=== PATIENT | male | born 1975 | race Caucasian/White ===

== ENCOUNTER 2017-01-01 08:44 | Emergency (ER) | payer BC ==
[~2017-01-01] VITALS: Ht 177.8 cm; Wt 99.7 kg
[2017-01-01 08:53] VITALS: TEMP 36.8; Ht 177.8 cm; Wt 99.7 kg
[2017-01-01 09:43] LABS: HEMATOCRIT 42.9 % (42-52); MEAN CELL VOLUME 86.3 fL (80-100); MEAN CORPUSCULAR HEMOGLOBIN 29.6 pg (25-34); MEAN CORPUSCULAR HGB CONC 34.3 g/dl (32-36); MEAN PLATELET VOLUME 9.9 fL (7.4-10.4); PLATELET COUNT 264 K/uL (130-400); RED BLOOD COUNT 4.97 M/uL (4.7-6.1)
[2017-01-01] MEDS ORDERED: KETOROLAC TROMETHAMINE 30 MG/ML VIAL IV STA (09:43)
[2017-01-01] MEDS ORDERED: SODIUM CHLORIDE 0.9% 1000ML 1,000 ML IV ONE (09:43)
[2017-01-01] MEDS ORDERED: SODIUM CHLORIDE 0.9% 1000ML 1,000 ML IV STA (09:43)
--- NOTE | 2017-01-01 09:45 | EMERGENCY ROOM VISIT NOTE ---
History Report prepared by Nila: Tone Reeves Under the Supervision of: Dr. Danielito Kim M.D. First contact with patient: 09:30 Chief Complaint: COUGH Stated Complaint: COUGHING UP BLOOD,LOW BACK PAIN,REFERRED Nursing Triage Summary: Pt c/o body aches, fever, headache Monday and Monday. [place] better until the evening started having left back, shoulder, chest pressure, when he stood he felt better. Laid down again and symptoms reappeared. Knows someone with pericarditis with similar symptoms. [place] better. Cough started coughing, threw up from coughing, no blood. Yesterday cough continued, sharp shooting pain in left ribs and left low back that night . Last night he started coughing up blood. Was sent in for CXR History of Present Illness The patient is a 41 year old male who presents to the Emergency Room with complaints of a worsening cough starting two days ago, and he states that he is coughing up blood. The patient states that six days ago he was having body aches , chills, and fevers, and then two days later it felt better. He states that three days ago he was feeling okay, and then he went to lay down, and he was having chest pressure and left shoulder pain that went away when he sat up. He states that he laid back down, and the pain came back, so he sat up, and it felt better. He additionally states that he had some vomiting, sinus pressure, and a headache. He is additionally complaining of sharp left rib and back pain that is exacerbated with deep inspiration and coughing. The patient denies any leg swelling or pain, urinary symptoms, recent long travels, or smoking. The patient states that he has been around someone with pneumonia recently, and he drinks alcohol a few times per month. He states that he has a family history of DVTs and PEs in his mother. Source of History: patient Onset: two days ago Position: other (global) Quality: other (cough) Timing: worsening Associated Symptoms: + back pain, + chills, + fevers, + headache, + vomiting , No urinary symptoms Note: Associated symptoms: Chest pressure and left shoulder pain Review of Systems See HPI for pertinent positives & negatives. A total of 10 systems reviewed and were otherwise negative. Past Medical & Surgical Medical Problems: (1) Biceps rupture, distal Surgical Problems: (1) [place] teeth extracted Old medical records were reviewed. Nurse's notes were reviewed and I agree with. No history of PE or cardiac disease Family History DVT FHx: pulmonary embolism Social History Smoking Status: Never Smoker Alcohol Use: occasionally Marital Status: Housing Status: lives with family Occupation Status: employed Current/Historical Medications Scheduled Levofloxacin (Levaquin), 750 MG PO DAILY Scheduled PRN Oxycodone Immediate Rel Tab (Roxicodone Ir), 1-2 TAB PO Q4H PRN for Severe Pain Allergies Coded Allergies: No Known Allergies (Unverified , 02/16/16) Physical Exam Vital Signs Date Time Temp Pulse Resp B/P Pulse Ox O2 Delivery O2 Flow Rate FiO2 01/01/17 12:53 82 18 147/93 98 Room Air 01/01/17 10:50 90 18 152/85 98 Room Air 01/01/17 08:58 98 Room Air 01/01/17 08:53 36.8 98 17 135/78 98 Room Air Physical Exam General: Non-ill appearing middle aged male HEENT: Normal cephalic atraumatic. Pupils are equal round and reactive to light. Extraocular movements are intact. Oropharynx is pink with moist mucous membranes. No swelling of the mouth lips or tongue. Neck: Supple with a midline trachea. No meningeal signs or stiffness, no JVD or bruits. No Stridor. Chest: Occasional cough which is the cause of pain in the left posterior chest. Clear to auscultation bilaterally. No wheezes or rhonchi. No increased work of breathing. Heart: regular rate and rhythm. Abdomen: Soft nontender, nondistended without rebound guarding or rigidity. Extremities: No cyanosis clubbing or edema. No calf tenderness or assymetry Spine/Back. Non tender to palpation. No CVA tenderness Skin: Good turgor without rashes. Neurologic exam: Cranial nerves two through 12 are intact. Motor and sensation are intact and symmetrical throughout. Medical Decision & Procedures ER Provider Diagnostic Interpretation: Radiology results as stated below per my review and radiologist interpretation: CHEST ONE VIEW PORTABLE HISTORY: Atypical chest pain. COMPARISON: None. FINDINGS: There are low lung volumes. The heart is borderline enlarged. This may be accentuated by the low lung volumes. No pleural effusions. No pneumothorax. No focal lung consolidations. No evidence for pulmonary edema. IMPRESSION: Mild enlargement of cardiac silhouette which could be due to the low lung volumes. Electronically signed by: Jarrell Garcia M.D. 01/01/2017 10:04 AM Dictated Date/Time: 01/01/2017 10:03 AM CHEST CTA for PULMONARY ARTERIES CT DOSE: 901.13 mGy.cm HISTORY: Left-sided chest pain. TECHNIQUE: Multiaxial CT images of the chest were performed following the intravenous administration of contrast to evaluate the pulmonary arteries. Maximal intensity projection images were also obtained. COMPARISON STUDY: None. FINDINGS: No evidence for an aortic dissection. Suboptimal opacification of the pulmonary arteries due to the timing of contrast. There is also mild respiratory motion artifact. The main pulmonary arteries are near nondiagnostic due to the suboptimal opacification. However, there are no definite filling defects within the pulmonary arteries to suggest pulmonary embolus. Questionable filling defects seen within the left lower lobe segmental pulmonary artery on image 121 appears be due to motion artifact. Trace left pleural effusion. No fractures within the visualized osseous structures. Focal consolidation seen within the base of the left lower lobe. An 8 mm nodule within the left major fissure. The central airways are patent. No pneumothorax. The right lung is clear. Hepatic steatosis. The spleen and visualized adrenal glands are unremarkable. No mediastinal lymphadenopathy. Mildly enlarged left hilar lymph nodes measuring up to 12 mm. IMPRESSION: 1. Suboptimal evaluation of the pulmonary arteries as described above. However, no definite pulmonary embolus identified. 2. Focal consolidation seen within the base of the left lower lobe. This favors a pneumonia. 3. An 8 mm nodule within the left major fissure. 4. Mildly enlarged left hilar lymph nodes which are likely reactive. 5. Follow-up chest CT in 2-3 months is recommended to ensure resolution of the above findings. Electronically signed by: Jarrell Garcia M.D. 01/01/2017 10:58 AM Dictated Date/Time: 01/01/2017 10:46 AM Laboratory Results 01/01/17 09:23 01/01/17 09:23 Test 01/01/17 09:23 01/01/17 09:48 01/01/17 11:00 01/01/17 11:01 Red Blood Count 4.97 M/uL (4.7-6.1) Mean Corpuscular Volume 86.3 fL (80-100) Mean Corpuscular Hemoglobin 29.6 pg (25-34) Mean Corpuscular Hemoglobin Concent 34.3 g/dl (32-36) RDW Standard Deviation 41.1 fL (36.4-46.3) RDW Coefficient of Variation 12.9 % (11.5-14.5) Mean Platelet Volume 9.9 fL (7.4-10.4) Prothrombin Time 10.5 SECONDS (9.0-12.0) Prothromb Time International Ratio 1.0 (0.9-1.1) Activated Partial Thromboplast Time 29.9 SECONDS (21.0-31.0) Partial Thromboplastin Ratio 1.2 Anion Gap 7.0 mmol/L (3-11) Est Creatinine Clear Calc Drug Dose 93.9 ml/min Estimated GFR () 85.3 Estimated GFR (Non- 73.6 BUN/Creatinine Ratio 11.9 (10-20) Calcium Level 8.9 mg/dl (8.5-10.1) Total Bilirubin 1.0 mg/dl (0.2-1) Aspartate Amino Transf (AST/SGOT) 34 U/L (15-37) Alanine Aminotransferase (ALT/SGPT) 68 U/L (12-78) Alkaline Phosphatase 75 U/L (45-117) Total Creatine Kinase 283 U/L (39-308) Creatine Kinase MB 1.4 ng/ml (0.5-3.6) Creatine Kinase MB Ratio 0.5 (0-3.0) Troponin I < 0.015 ng/ml (0-0.045) Total Protein 7.3 gm/dl (6.4-8.2) Albumin 3.4 gm/dl (3.4-5.0) Globulin 3.9 gm/dl (2.5-4.0) Albumin/Globulin Ratio 0.9 (0.9-2) Bedside D-Dimer > 450 ng/mlFEU (0-450) Bedside Troponin I 0.000 ng/ml (0-0.045) MW-Jby-S-Type Natriuretic Peptide 39 pg/ml (0-450) Urine Color DK YELLOW Urine Appearance CLOUDY (CLEAR) Urine pH 5.0 (4.5-7.5) Urine Specific [place] > 1.045 (1.000-1.030) Urine Protein NEG (NEG) Urine Glucose (UA) NEG (NEG) Urine Ketones TRACE (NEG) Urine Occult Blood NEG (NEG) Urine Nitrite NEG (NEG) Urine Bilirubin NEG (NEG) Urine Urobilinogen NEG (NEG) Urine Leukocyte Esterase NEG (NEG) Urine WBC (Auto) 1-5 /hpf (0-5) Urine RBC (Auto) 0-4 /hpf (0-4) Urine Hyaline Casts (Auto) 1-5 /lpf (0-5) Urine Epithelial Cells (Auto) 10-20 /lpf (0-5) Urine Bacteria (Auto) NEG (NEG) Test 01/01/17 12:51 Laboratory studies as stated above per my review. Medications Administered Medications (Trade) Dose Ordered Sig/[place] Route Start Time Stop Time Status Last Admin Dose Admin Sodium Chloride 1,000 ml @ 999 mls/hr Q1H1M STAT IV 01/01/17 09:43 01/01/17 10:43 DC 01/01/17 09:51 999 MLS/HR Sodium Chloride (Nss 1000ml) 1,000 ml @ 150 mls/hr Q6H40M ONCE IV 01/01/17 09:43 01/01/17 13:10 DC 01/01/17 09:43 150 MLS/HR Ketorolac Tromethamine (Toradol Inj) 30 mg NOW STAT IV 01/01/17 09:43 01/01/17 09:44 DC 01/01/17 09:51 30 MG Ceftriaxone Sodium (Rocephin Inj) 1 gm NOW STAT IV 01/01/17 11:28 01/01/17 11:29 DC 01/01/17 11:50 1 GM Azithromycin (Zithromax Tab) 500 mg NOW ONCE PO 01/01/17 11:30 01/01/17 11:31 DC 01/01/17 11:50 500 MG ECG Indication: other (cough) Rate (beats per minute): 87 Rhythm: normal sinus Findings: no acute ischemic change, no ectopy, other (No ST segment changes) Comparison ECG Date: 03/04/14 Change: no significant change ED Course 0930: Past medical records reviewed. The patient was evaluated in room B12, and a complete history and physical examination were performed. 0943: Toradol Inj 30mg IV, Sodium Chloride 1000 ml @ 150 mls/hr IV, Sodium Chloride 1000 ml @ 999 mls/hr IV 1014: I reevaluated the patient, and he appears comfortable. I discussed the pros and cons of CT scan, and he agrees. 1100: I reevaluated the patient, and he was doing well 1122: I discussed the patient's case with Dr. Garcia, Radiology, and he does not feel that it is consistent with a PE. 1123: I reassessed the patient, and he was doing well. 1128: Rocephin Inj 1 gm IV 1130: Zithromax Tab 500mg PO 1149: I discussed the patient's case with Dr. Killian, Pulmonology, and he recommends I test for Bordetella and legionella, and to put on the patient on Levaquin. 1207: Upon reevaluation, the patient is feeling well. I discussed the results and treatment plan with him. He verbalized agreement of the treatment plan. The patient was discharged home. Medical Decision Differentials include, but are not limited to; pneumonia, pneumothorax, pericarditis, cardiac disease, infection. This patient comes in as described above. He was placed in room B12. He Is here for treatment and evaluation of cough. He's had a little bit of hemoptysis and he also has left sided chest pain mostly posterior with breathing or moving. He is afebrile here. His vital signs are stable. IV access established and he was hydrated with IV normal saline. He was given Toradol 30 mg IV. Chest x-ray was obtained which did not show any definite infiltrate or pneumothorax. EKG does not show any evidence of acute coronary syndrome or pericarditis. His white count is not elevated. He is not anemic. He has normal renal function. His cardiac biomarkers are not elevated. His d- dimer was elevated and in light of this, I did do a chest CT to evaluate for the possibility of PE or other pathology. I explained the risks and benefits the patient and he freely consented. The CAT scan shows what appears to be pneumonia in the left lower lobe. There is no evidence to suggest a PE at this point. I did discuss the case with Dr. Garcia, the radiologist, who felt this was pneumonia and not PE. I did this further discuss case Dr. Killian, the network cable installer on-call. Given the patient's hotel exposure, he recommended we cover him for Legionella. He also recommended Legionella antigen from the urine as well as Bordetella pertussis antigens from the blood in these were ordered. The patient had received 1 g Rocephin IV here as well as azithromycin [address] Killian recommend we switch him to Levaquin 750 mg and he was given prescription for this. I encouraged close follow-up tomorrow with his primary care doctor he strongly desires to go home. He can use ibuprofen pain for breakthrough pain use OxyIR 5 mg, one or 2 pills every 4-6 hours as needed. He was warned that this can make him drowsy and do not take before drinking, driving, working. He was encouraged to return if: increasing pain, worsening of symptoms, shortness of breath, any new problems or concerns. Consults Time Called: 1119 Consulting Physician: Dr. Garcia, Radiology Returned Call: 1122 I discussed the patient's case with Dr. Garcia, Radiology, and he does not feel that it is consistent with a PE Additional Consults: Time Called: 1133 Consulted Physician: Dr. Killian, Pulmonology Returned Call: 1145 Additional Comments: I discussed the patient's case with Dr. Killian, Pulmonology, and he recommends I test for Bordetella and legionella, and to put on the patient on Levaquin Impression Primary Impression: Pneumonia Additional Impression: Left sided chest pain Scribe Attestation The scribe's documentation has been prepared under my direction and personally reviewed by me in its entirety. I confirm that the note above accurately reflects all work, treatment, procedures, and medical decision making performed by me. Departure Information Dispostion Home / Self-Care Prescriptions Oxycodone Immediate Rel Tab (ROXICODONE IR) 5 Mg Tab 1-2 TAB PO Q4H Y for Severe Pain, #24 TAB Prov: Danielito Kim M.D. 01/01/17 Levofloxacin (Levaquin) 750 Mg Tab 750 MG PO DAILY, #14 TAB Prov: Danielito Kim M.D. 01/01/17 Referrals Vicki Perez M.D. (PCP) Forms HOME CARE DOCUMENTATION FORM, IMPORTANT VISIT INFORMATION Patient Instructions My [facility] Additional Instructions Rest. Drink plenty of fluids. Use Levaquin 750 mg once a day for 14 days May use ibuprofen 400 mg every 6 hours as needed for pain For more severe pain use OxyIR 5 mg, one or 2 pills every 4-6 hours as needed OxyIR may make you drowsy -do not take before drinking, driving, working Follow-up with your doctor tomorrow for recheck. They can try to get you seen by a pulmonary as well this week. Return if: Increasing pain, worsening of symptoms, fever or chills, shortness of breath, any new problems or concerns Problem Qualifiers
[2017-01-01 09:51] LABS: PARTIAL THROMBOPLASTIN RATIO 1.2; PROTHROMBIN TIME (PATIENT) 10.5 SECONDS (9.0-12.0)
[2017-01-01 09:58] LABS: CALCIUM 8.9 mg/dl (8.5-10.1)
[2017-01-01 09:59] LABS: ALT/SGPT 68 U/L (12-78); BLOOD UREA NITROGEN 14 mg/dl (7-18); BUN/CREATININE RATIO 11.9 (10-20); CARBON DIOXIDE 27 mmol/L (21-32); CHLORIDE 105 mmol/L (98-107); GLUCOSE 115 mg/dl (70-99); POTASSIUM 3.7 mmol/L (3.5-5.1); SODIUM 139 mmol/L (136-145)
[2017-01-01 10:04] LABS: ALB/GLOB RATIO 0.9 (0.9-2); ALKALINE PHOSPHATASE 75 U/L (45-117); AST/SGOT 34 U/L (15-37); CKMB/CK RATIO 0.5 (0-3.0)
--- NOTE | 2017-01-01 10:05 | DIAGNOSTIC IMAGING REPORT ---
CHEST ONE VIEW PORTABLE HISTORY: Atypical chest pain. COMPARISON: None. FINDINGS: There are low lung volumes. The heart is borderline enlarged. This may be accentuated by the low lung volumes. No pleural effusions. No pneumothorax. No focal lung consolidations. No evidence for pulmonary edema. IMPRESSION: Mild enlargement of cardiac silhouette which could be due to the low lung volumes. Electronically signed by: Jarrell Garcia M.D. 01/01/2017 10:04 AM Dictated Date/Time: 01/01/2017 10:03 AM
[2017-01-01 10:12] LABS: POINT OF CARE PRO-BNP 39 pg/ml (0-450)
[2017-01-01] MEDS ORDERED: OPTIRAY 320 IV PRN (10:30)
--- NOTE | 2017-01-01 10:59 | DIAGNOSTIC IMAGING REPORT ---
CHEST CTA for PULMONARY ARTERIES CT DOSE: 901.13 mGy.cm HISTORY: Left-sided chest pain. TECHNIQUE: Multiaxial CT images of the chest were performed following the intravenous administration of contrast to evaluate the pulmonary arteries. Maximal intensity projection images were also obtained. COMPARISON STUDY: None. FINDINGS: No evidence for an aortic dissection. Suboptimal opacification of the pulmonary arteries due to the timing of contrast. There is also mild respiratory motion artifact. The main pulmonary arteries are near nondiagnostic due to the suboptimal opacification. However, there are no definite filling defects within the pulmonary arteries to suggest pulmonary embolus. Questionable filling defects seen within the left lower lobe segmental pulmonary artery on image 121 appears be due to motion artifact. Trace left pleural effusion. No fractures within the visualized osseous structures. Focal consolidation seen within the base of the left lower lobe. An 8 mm nodule within the left major fissure. The central airways are patent. No pneumothorax. The right lung is clear. Hepatic steatosis. The spleen and visualized adrenal glands are unremarkable. No mediastinal lymphadenopathy. Mildly enlarged left hilar lymph nodes measuring up to 12 mm. IMPRESSION: 1. Suboptimal evaluation of the pulmonary arteries as described above. However, no definite pulmonary embolus identified. 2. Focal consolidation seen within the base of the left lower lobe. This favors a pneumonia. 3. An 8 mm nodule within the left major fissure. 4. Mildly enlarged left hilar lymph nodes which are likely reactive. 5. Follow-up chest CT in 2-3 months is recommended to ensure resolution of the above findings. Electronically signed by: Jarrell Garcia M.D. 01/01/2017 10:58 AM Dictated Date/Time: 01/01/2017 10:46 AM
[2017-01-01 11:12] LABS: URINE APPEARANCE CLOUDY (CLEAR); URINE BILIRUBIN NEG (NEG); URINE COLOR DK YELLOW; URINE NITRITE NEG (NEG); URINE SPECIFIC GRAVITY > 1.045 (1.000-1.030); UROBILINOGEN NEG (NEG); ZZUR CULT IF INDIC CLEAN CATCH NO
[2017-01-01 11:15] LABS: MANUAL MICROSCOPIC REQUIRED? NO; REVIEW REQ? NO
[2017-01-01] MEDS ORDERED: CEFTRIAXONE SOD INJ 1 GM ADDVIAL IV STA (11:28)
[2017-01-01] MEDS ORDERED: AZITHROMYCIN 250 MG TAB PO ONE (11:30)
[2017-01-01] MEDS ORDERED: LEVO1TAB35 PO (12:03)
[2017-01-01] MEDS ORDERED: OXYC1TAB3 PO (12:03)
[2017-01-01 12:53] VITALS: BP 147/93; PULSE 82; O2SAT 98
[2017-01-03 10:06] LABS: LEGIONELLA ANTIGEN NOT DETECTED (NOT DETECTED)
[2017-01-06 22:10] LABS: BORDETELLA PERTUSSIS PT IGA <1 IU/mL
== END 2017-01-01 12:54 | disposition home or self-care (01) ==
LOC: C.EDB 08:45
DX: J18.9 Pneumonia, unspecified organism (principal); R07.9 Chest pain, unspecified; Z79.899 Other long term (current) drug therapy

== ENCOUNTER 2022-02-26 10:13 | Inpatient (IN) ==
--- NOTE | 2022-02-26 10:56 | Emergency Department Note ---
Impression & Plan Encephalitis, Memory loss ED Provider Note INFORMANT: Patient and ED PROVIDER(S): Damien Nevarez MD CHIEF COMPLAINT: Memory loss PLAN: Disposition: Admitted Condition: Good Outpatient prescription management: none Referral: None MEDICAL DECISION MAKING: Patient presented to the emergency department because of increasing issues with memory loss. He had a viral-like illness about 2-1/2 months ago. He did not have any significant headache. On physical examination he had stable vital signs. He was afebrile. The patient had no meningeal findings. He had no focal findings. He did have issues with orientation to time and somewhat place. He underwent blood work, EKG, and CT with angiography. His blood work revealed an unremarkable CBC and chemistry panel. The patient's Lyme testing was negative. His ESR was normal. Patient did have a mild elevation of his CRP. C T angiography was negative for acute process. I did discuss the case with Dr. Sindy De La Rosa of neurology. She recommended MR imaging with contrast as well as LP. She also noted the patient would eventually need an EEG. Patient underwent MR imaging. No abnormalities were noted. Also radiology did note that his dural sinuses were negative. Patient had an LP performed after consenting verbally. This went well and fluid was sent to the lab. He was found to have a mild elevation of his CSF white blood cell count as well as total protein. He has no meningeal findings and no headache. With the confusion I suspect this may be an encephalitis. He denies any history of tick bite. He does not spend any time in the [facility] area which would make [place] virus less likely. I did order an [place] virus and CSF bio fire. Neurology did recommend empiric treatment and he was given Decadron, Rocephin, vancomycin, and acyclovir. Consultation was made with the [facility] ospitalist service. The patient was evaluated in the ER and admitted for further management. Triage Nursing notes reviewed and agree them. Vital Signs: reviewed and remarkable for no significant abnormalities Differential diagnosis: TGA, CVA, TIA, Infection, dehydration, metabolic abnormality, hypo/hyperglycemia, electrolyte disturbance, anemia, hypoxia, cardiac sources, intracerebral event, toxicologic, neurologic, meningitis/encephalitis, viral process, as well as other pathologies. Diagnostics interpreted by me: EC Lead ECG performed and revealed Normal sinus rhythm at 79, normal [place], QRS low voltage. No elevation or depression. No PACs or PVCs Cardiac Monitoring: Cardiac monitoring ordered by me: The patient was placed on continuous cardiac monitoring and observed. It revealed a normal sinus rhythm at 75 beats per minute without ectopy or evidence of dysrhythmia. Imaging studies: CT and CT angiography as well as MR with and without contrast as noted below. HPI: The patient is a 46 year old male who presents to the Emergency Room with complaints of memory loss. This started about 3-4 weeks ago and is worsening. The patient also notes the following associated symptoms, short term memory issues, fatigue, weight loss. The patient has found no relieving factors. Current pain is rated as 0/10. Seemed to worsen with less sleep. notes some expressive aphasia like episodes and last few days significant loss of memory. Saw PCP yesterday and blood work performed. Referred to Neurology. Pt denies LOC, headache, fevers, chills, diaphoresis, visual changes, neck pain, chest pain, breathing difficulties, nausea, vomiting, abdominal pain, back pain, melena, hematochezia, urinary symptoms, numbness, weakness, lymphadenopathy, rash, or other complaints. ROS: See above HPI for pertinent positives & negatives. A total of 10 systems reviewed and were otherwise negative. PAST MEDICAL HISTORY:See Below , pt and denies PAST SURGICAL HISTORY:See Below, foot orthopedic FAMILY HISTORY:See Below SOCIAL HISTORY:See Below, HOME MEDICATIONS:See Below ALLERGIES:See Below VITALS:See Below PHYSICAL EXAMINATION: GENERAL: Awake, alert, well-appearing, in no distress HENT: Normocephalic, atraumatic. Oropharynx unremarkable. EYES: Normal conjunctiva. Sclera non-icteric. NECK: Inspection normal. Non-tender. Supple. No nuchal rigidity. FROM. No masses. RESPIRATORY: Clear to auscultation. No wheezes. No rales. Normal respiratory effort. CARDIAC: Normal rate. Normal rhythm. No murmurs. No rubs. Extremities warm and well perfused. Pulses equal. No JVD. GI: Soft, non-distended. No tenderness to palpation. No rebound or guarding. No masses. RECTAL: Deferred. MUSCULOSKELETAL: Atraumatic. Chest examination reveals no tenderness. The back is symmetrical on inspection without obvious abnormality. There is no CVA tenderness to palpation. No joint edema. LOWER EXTREMITIES: Calves are equal size bilaterally and non-tender. No edema. No discoloration. NEURO: Relatively normal sensorium. No sensory or motor deficits noted. CN2-12 intact. No drift. Oriented to person and place. Not oriented to time. Nml he el to [place]. Normal rapid alternating movements. Some repetitive questioning. SKIN: No rash or jaundice noted. LUMBAR PUNCTURE: Indication: Altered mental status verbal consent was obtained after the risks and benefits were explained, including but not limited to headache, bleeding, scarring, infection, pain, and bone/joint/nerve damage, thrombosis. At this time, the risks of the procedure are less than the risks of NOT performing the procedure. A time out was taken and the correct patient and site identified. The patient was placed in the left lateral decubitus position and the back was prepped and draped in the standard fashion with betadine. The L3 intervertebral space was identified, anesthetized with lidocaine, and the spinal needle was inserted through the skin with the bevel parallel to the dural fibers. The needle was carefully advanced into the sac and 4 tubes of clear CSF was obtained. The stylet was replaced and the needle was removed. A bandaid was placed and the patient was placed in the supine position. The patient tolerated the procedure well and there were no complications. Damien Nevarez MD Past Med/Surg History Social History Smoking Status: Never smoker Preferred Language: Wallisian Feels Safe at Home: Yes Allergies Allergies Allergy/AdvReac Type Severity Reaction Status Date / Time No Known Allergies Allergy Unverified 02/26/22 13:43 Home Meds Home Medications Medication Instructions Recorded Confirmed No Known Home Medications 02/26/22 02/26/22 Results & Data (ED) Vital Signs Vital Signs - 24 hr 02/26/22 10:21 02/26/22 10:54 02/26/22 11:00 Temperature 36.9 C Temperature Source Temporal Artery Scan Pulse Rate 86 Pulse Rate from SpO2 Sensor Respiratory Rate 18 Respiratory Effort / Characteristics Non-Labored Respiratory Depth Normal Respiratory Pattern Regular Blood Pressure 141/90 H 132/81 Blood Pressure Mean 107 98 Pulse Oximetry 96 96 Oxygen Delivery Method Room Air Room Air Sepsis Recent Fever Within 48 Hours No Sepsis New/Unexplained Change in Mental Status No Sepsis Action Taken by Nursing No Action Required 02/26/22 11:00 02/26/22 11:30 02/26/22 11:30 Temperature Temperature Source Pulse Rate 78 64 Pulse Rate from SpO2 Sensor 77 63 Respiratory Rate 18 20 Respiratory Effort / Characteristics Respiratory Depth Respiratory Pattern Blood Pressure 111/76 Blood Pressure Mean 87 Pulse Oximetry 95 91 Oxygen Delivery Method Sepsis Recent Fever Within 48 Hours Sepsis New/Unexplained Change in Mental Status Sepsis Action Taken by Nursing 02/26/22 12:01 02/26/22 12:01 02/26/22 12:30 Temperature Temperature Source Pulse Rate Pulse Rate from SpO2 Sensor 80 Respiratory Rate Respiratory Effort / Characteristics Respiratory Depth Respiratory Pattern Blood Pressure 137/80 135/93 Blood Pressure Mean 99 107 Pulse Oximetry 96 Oxygen Delivery Method Sepsis Recent Fever Within 48 Hours Sepsis New/Unexplained Change in Mental Status Sepsis Action Taken by Nursing 02/26/22 12:30 02/26/22 13:00 02/26/22 13:00 Temperature Temperature Source Pulse Rate Pulse Rate from SpO2 Sensor 80 68 Respiratory Rate Respiratory Effort / Characteristics Respiratory Depth Respiratory Pattern Blood Pressure 129/80 Blood Pressure Mean 96 Pulse Oximetry 96 94 Oxygen Delivery Method Sepsis Recent Fever Within 48 Hours Sepsis New/Unexplained Change in Mental Status Sepsis Action Taken by Nursing 02/26/22 13:30 02/26/22 13:30 02/26/22 14:00 Temperature Temperature Source Pulse Rate Pulse Rate from SpO2 Sensor 84 Respiratory Rate Respiratory Effort / Characteristics Respiratory Depth Respiratory Pattern Blood Pressure 132/83 136/87 Blood Pressure Mean 99 103 Pulse Oximetry 93 Oxygen Delivery Method Sepsis Recent Fever Within 48 Hours Sepsis New/Unexplained Change in Mental Status Sepsis Action Taken by Nursing 02/26/22 14:00 02/26/22 15:17 02/26/22 15:17 Temperature Temperature Source Pulse Rate Pulse Rate from SpO2 Sensor 74 71 Respiratory Rate 16 Respiratory Effort / Characteristics Respiratory Depth Respiratory Pattern Blood Pressure 136/92 Blood Pressure Mean 106 Pulse Oximetry 96 96 Oxygen Delivery Method Sepsis Recent Fever Within 48 Hours Sepsis New/Unexplained Change in Mental Status Sepsis Action Taken by Nursing 02/26/22 16:00 02/26/22 16:00 Temperature Temperature Source Pulse Rate 75 Pulse Rate from SpO2 Sensor Respiratory Rate 20 Respiratory Effort / Characteristics Respiratory Depth Respiratory Pattern Blood Pressure 150/87 H Blood Pressure Mean 108 Pulse Oximetry 95 Oxygen Delivery Method Sepsis Recent Fever Within 48 Hours Sepsis New/Unexplained Change in Mental Status Sepsis Action Taken by Nursing Laboratory Data Result diagrams: 02/26/22 10:39 02/26/22 10:39 Lab Results 0702/26/22 02/26/22 Range/Units 10:39 10:39 10:39 WBC 5.61 (4.8-10.8) K/ul RBC 5.12 (4.63-6.08) M/uL Hgb 15.0 (14.0-18.0) g/dl Hct 43.4 (40.1-51.0) % MCV 84.8 (80.0-100.0) fL MCH 29.3 (25.0-34.0) pg MCHC 34.6 (32.0-36.0) g/dL RDW Std Deviation 39.6 (36.4-46.3) fL RDW Coeff of Aurelio 12.9 (11.5-14.5) % Plt Count 180 (130-400) K/uL MPV 10.9 (9.4-12.4) fL Immature Gran % (Auto) 0.2 % Neut % (Auto) 73.8 % Lymph % (Auto) 18.7 % [place] % (Auto) 5.9 % Eos % (Auto) 0.9 % Baso % (Auto) 0.5 % Neut # (Auto) 4.14 (1.4-6.5) K/uL Lymph # (Auto) 1.05 L (1.2-3.4) K/uL [place] # (Auto) 0.33 (0.24-0.82) K/uL Eos # (Auto) 0.05 (0-0.50) K/uL Baso # (Auto) 0.03 (0-0.2) K/uL Immature Gran # (Auto) 0.01 (0.00-0.02) K/uL ESR (0-15) mm/hr Sodium 139 (136-145) mmol/L Potassium 3.7 (3.5-5.1) mmol/L Chloride 106 (98-107) mmol/L Carbon Dioxide 24 (21-32) mmol/L Anion Gap 9 (3-11) BUN 8 (6-23) mg/dl Creatinine 1.11 (0.6-1.4) mg/dl Est Cr Clr Drug Dosing 106.2 ml/min Est GFR ( Amer) 90.5 ml/min Est GFR (Non-Af Amer) 78.1 ml/min BUN/Creatinine Ratio 7.2 L (10-20) Glucose 120 H (70-99(Fasting)) mg/dl Calcium 9.4 (8.5-10.1) mg/dl Magnesium 2.1 (1.7-2.4) mg/dl Total Bilirubin 1.4 H (0.2-1.0) mg/dl AST 40 H (13-39) U/L ALT 49 (7-52) U/L Alkaline Phosphatase 53 (34-104) U/L C-Reactive Protein (0-0.5) mg/dl Total Protein 6.7 (6.0-8.3) gm/dl Albumin 4.3 (3.4-5.0) gm/dl Globulin 2.4 L (2.5-4.0) gm/dl Albumin/Globulin Ratio 1.8 (0.9-2) TSH 2.529 (0.300-4.500) uIu/ml Urine Color Urine Appearance (Clear) Urine pH (4.5-7.5) Ur Specific [place] (1.000-1.030) Urine Protein (Negative) Urine Glucose (UA) (Negative) Urine Ketones (Negative) Urine Blood (Negative) Urine Nitrite (Negative) Urine Bilirubin (Negative) Urine Urobilinogen (Negative) Ur Leukocyte Esterase (Negative) Fluid Comment CSF Appearance CSF Color Xanthrochromic CSF WBC (0-5) /uL CSF RBC (0-) /uL CSF Cell Count Tube # CSF Chemistry Tube # CSF Glucose (40-70) mg/dl CSF Total Protein (15-45) mg/dl Lyme Disease IgG Ab (Negative) Lyme Disease IgM Ab (Negative) SARS-CoV-2, RNA, NAAT (NEGATIVE) 02/26/22 02/26/22 02/26/22 Range/Units 10:39 10:44 10:44 WBC (4.8-10.8) K/ul RBC (4.63-6.08) M/uL Hgb (14.0-18.0) g/dl Hct (40.1-51.0) % MCV (80.0-100.0) fL MCH (25.0-34.0) pg MCHC (32.0-36.0) g/dL RDW Std Deviation (36.4-46.3) fL RDW Coeff of Aurelio (11.5-14.5) % Plt Count (130-400) K/uL MPV (9.4-12.4) fL Immature Gran % (Auto) % Neut % (Auto) % Lymph % (Auto) % [place] % (Auto) % Eos % (Auto) % Baso % (Auto) % Neut # (Auto) (1.4-6.5) K/uL Lymph # (Auto) (1.2-3.4) K/uL [place] # (Auto) (0.24-0.82) K/uL Eos # (Auto) (0-0.50) K/uL Baso # (Auto) (0-0.2) K/uL Immature Gran # (Auto) (0.00-0.02) K/uL ESR 10 (0-15) mm/hr Sodium (136-145) mmol/L Potassium (3.5-5.1) mmol/L Chloride (98-107) mmol/L Carbon Dioxide (21-32) mmol/L Anion Gap (3-11) BUN (6-23) mg/dl Creatinine (0.6-1.4) mg/dl Est Cr Clr Drug Dosing ml/min Est GFR ( Amer) ml/min Est GFR (Non-Af Amer) ml/min BUN/Creatinine Ratio (10-20) Glucose (70-99(Fasting)) mg/dl Calcium (8.5-10.1) mg/dl Magnesium (1.7-2.4) mg/dl Total Bilirubin (0.2-1.0) mg/dl AST (13-39) U/L ALT (7-52) U/L Alkaline Phosphatase (34-104) U/L C-Reactive Protein 1.23 H (0-0.5) mg/dl Total Protein (6.0-8.3) gm/dl Albumin (3.4-5.0) gm/dl Globulin (2.5-4.0) gm/dl Albumin/Globulin Ratio (0.9-2) TSH (0.300-4.500) uIu/ml Urine Color Urine Appearance (Clear) Urine pH (4.5-7.5) Ur Specific [place] (1.000-1.030) Urine Protein (Negative) Urine Glucose (UA) (Negative) Urine Ketones (Negative) Urine Blood (Negative) Urine Nitrite (Negative) Urine Bilirubin (Negative) Urine Urobilinogen (Negative) Ur Leukocyte Esterase (Negative) Fluid Comment CSF Appearance CSF Color Xanthrochromic CSF WBC (0-5) /uL CSF RBC (0-) /uL CSF Cell Count Tube # CSF Chemistry Tube # CSF Glucose (40-70) mg/dl CSF Total Protein (15-45) mg/dl Lyme Disease IgG Ab Negative (Negative) Lyme Disease IgM Ab Negative (Negative) SARS-CoV-2, RNA, NAAT (NEGATIVE) 02/26/22 02/26/22 02/26/22 Range/Units 12:00 15:13 15:45 WBC (4.8-10.8) K/ul RBC (4.63-6.08) M/uL Hgb (14.0-18.0) g/dl Hct (40.1-51.0) % MCV (80.0-100.0) fL MCH (25.0-34.0) pg MCHC (32.0-36.0) g/dL RDW Std Deviation (36.4-46.3) fL RDW Coeff of Aurelio (11.5-14.5) % Plt Count (130-400) K/uL MPV (9.4-12.4) fL Immature Gran % (Auto) % Neut % (Auto) % Lymph % (Auto) % [place] % (Auto) % Eos % (Auto) % Baso % (Auto) % Neut # (Auto) (1.4-6.5) K/uL Lymph # (Auto) (1.2-3.4) K/uL [place] # (Auto) (0.24-0.82) K/uL Eos # (Auto) (0-0.50) K/uL Baso # (Auto) (0-0.2) K/uL Immature Gran # (Auto) (0.00-0.02) K/uL ESR (0-15) mm/hr Sodium (136-145) mmol/L Potassium (3.5-5.1) mmol/L Chloride (98-107) mmol/L Carbon Dioxide (21-32) mmol/L Anion Gap (3-11) BUN (6-23) mg/dl Creatinine (0.6-1.4) mg/dl Est Cr Clr Drug Dosing ml/min Est GFR ( Amer) ml/min Est GFR (Non-Af Amer) ml/min BUN/Creatinine Ratio (10-20) Glucose (70-99(Fasting)) mg/dl Calcium (8.5-10.1) mg/dl Magnesium (1.7-2.4) mg/dl Total Bilirubin (0.2-1.0) mg/dl AST (13-39) U/L ALT (7-52) U/L Alkaline Phosphatase (34-104) U/L C-Reactive Protein (0-0.5) mg/dl Total Protein (6.0-8.3) gm/dl Albumin (3.4-5.0) gm/dl Globulin (2.5-4.0) gm/dl Albumin/Globulin Ratio (0.9-2) TSH (0.300-4.500) uIu/ml Urine Color Yellow Urine Appearance Clear (Clear) Urine pH 7.5 (4.5-7.5) Ur Specific [place] 1.022 (1.000-1.030) Urine Protein Negative (Negative) Urine Glucose (UA) Negative (Negative) Urine Ketones Negative (Negative) Urine Blood Negative (Negative) Urine Nitrite Negative (Negative) Urine Bilirubin Negative (Negative) Urine Urobilinogen Negative (Negative) Ur Leukocyte Esterase Negative (Negative) Fluid Comment CSF Appearance Clear CSF Color Colorless Xanthrochromic No xanthochromia CSF WBC 6 H (0-5) /uL CSF RBC 1 (0-) /uL CSF Cell Count Tube # 3 CSF Chemistry Tube # CSF Glucose (40-70) mg/dl CSF Total Protein (15-45) mg/dl Lyme Disease IgG Ab (Negative) Lyme Disease IgM Ab (Negative) SARS-CoV-2, RNA, NAAT NEGATIVE (NEGATIVE) 02/26/22 Range/Units 15:45 WBC (4.8-10.8) K/ul RBC (4.63-6.08) M/uL Hgb (14.0-18.0) g/dl Hct (40.1-51.0) % MCV (80.0-100.0) fL MCH (25.0-34.0) pg MCHC (32.0-36.0) g/dL RDW Std Deviation (36.4-46.3) fL RDW Coeff of Aurelio (11.5-14.5) % Plt Count (130-400) K/uL MPV (9.4-12.4) fL Immature Gran % (Auto) % Neut % (Auto) % Lymph % (Auto) % [place] % (Auto) % Eos % (Auto) % Baso % (Auto) % Neut # (Auto) (1.4-6.5) K/uL Lymph # (Auto) (1.2-3.4) K/uL [place] # (Auto) (0.24-0.82) K/uL Eos # (Auto) (0-0.50) K/uL Baso # (Auto) (0-0.2) K/uL Immature Gran # (Auto) (0.00-0.02) K/uL ESR (0-15) mm/hr Sodium (136-145) mmol/L Potassium (3.5-5.1) mmol/L Chloride (98-107) mmol/L Carbon Dioxide (21-32) mmol/L Anion Gap (3-11) BUN (6-23) mg/dl Creatinine (0.6-1.4) mg/dl Est Cr Clr Drug Dosing ml/min Est GFR ( Amer) ml/min Est GFR (Non-Af Amer) ml/min BUN/Creatinine Ratio (10-20) Glucose (70-99(Fasting)) mg/dl Calcium (8.5-10.1) mg/dl Magnesium (1.7-2.4) mg/dl Total Bilirubin (0.2-1.0) mg/dl AST (13-39) U/L ALT (7-52) U/L Alkaline Phosphatase (34-104) U/L C-Reactive Protein (0-0.5) mg/dl Total Protein (6.0-8.3) gm/dl Albumin (3.4-5.0) gm/dl Globulin (2.5-4.0) gm/dl Albumin/Globulin Ratio (0.9-2) TSH (0.300-4.500) uIu/ml Urine Color Urine Appearance (Clear) Urine pH (4.5-7.5) Ur Specific [place] (1.000-1.030) Urine Protein (Negative) Urine Glucose (UA) (Negative) Urine Ketones (Negative) Urine Blood (Negative) Urine Nitrite (Negative) Urine Bilirubin (Negative) Urine Urobilinogen (Negative) Ur Leukocyte Esterase (Negative) Fluid Comment CSF Appearance CSF Color Xanthrochromic CSF WBC (0-5) /uL CSF RBC (0-) /uL CSF Cell Count Tube # CSF Chemistry Tube # 1 CSF Glucose 64 (40-70) mg/dl CSF Total Protein 45.5 H (15-45) mg/dl Lyme Disease IgG Ab (Negative) Lyme Disease IgM Ab (Negative) SARS-CoV-2, RNA, NAAT (NEGATIVE) Administered Medications Discontinued Medications Dexamethasone Sodium Phosphate (DexamethasonePf 10 Mg/Ml Vial) 10 mg IV NOW ONE Stop: 02/26/22 16:51 Last Admin: 02/26/22 17:11 Dose: 10 mg Documented By: LYNDSEY Gadobutrol (Gadobutrol 65ml Vial) 12 ml IV ONCE ONE Stop: 02/26/22 15:01 Last Admin: 02/26/22 14:54 Dose: 12 ml Documented By: ELODIA Ceftriaxone Sodium (Rocephin) 2,000 mg in 70 mls @ 140 mls/hr IV NOW STA Stop: 02/26/22 17:19 Last Admin: 02/26/22 17:11 Dose: 140 mls/hr Documented By: LYNDSEY Ioversol (Optiray 320 125ml) 120 ml IV ONCE ONE Stop: 02/26/22 11:55 Last Admin: 02/26/22 11:55 Dose: 120 ml Documented By: JACOB Lidocaine HCl (Lidocaine 2% 2 Ml Vial/Amp(20mg/Ml)) 5 ml INFIL NOW STA Stop: 02/26/22 15:24 Last Admin: 02/26/22 16:03 Dose: Not Given Documented By: LYNDSEY Lidocaine HCl (Lidocaine 2% Local 50 Ml Vial) Confirm Administered Dose 50 ml .ROUTE .STK-MED ONE Stop: 02/26/22 15:28 Last Admin: 02/26/22 16:03 Dose: 50 ml Documented By: ALEXANDRA Imaging Data Radiologist's Impression: Head CT 02/26/22 11:[address] DOSE: HISTORY: Stroke Like Symptoms TECHNIQUE: Multiaxial CT images of the head were performed without the use of intravenous contrast. Automated exposure control was utilized for this study. A dose lowering technique was utilized adhering to the principles of ALARA. Comparison: None. Findings: Mild mucosal thickening within the ethmoid air cells. The mastoid air cells are clear. The calvarium and skull base are intact. The ventricles and garces lci are within normal limits. There is no mass, hematoma, midline shift, or acute infarct. Impression: No acute intracranial abnormality. ACT 112: Negative or not required by law. Electronically signed by: Jarrell Garcia M.D. 02/26/2022 12:06 PM Head CTA 02/26/22 11:00 HEAD & NECK CTA HISTORY: Stroke Like Symptoms TECHNIQUE: Multiaxial CT images of the head were performed following the intravenous administration of contrast to evaluate the major cerebral vessels. Multiaxial CT images of the neck were also performed following the intravenous administration of contrast to evaluate the major cervical vessels. Maximum intensity projection images were also obtained. A dose lowering technique was utilized adhering to the principles of ALARA. COMPARISON: None. FINDINGS: There is no mass, hematoma, midline shift, or acute infarct. Visualized intracranial internal carotid arteries, distal vertebral arteries, and basilar artery are widely patent. There is no significant stenosis, occlusion, or aneurysm seen within the bilateral ACAs, MCAs, or hearing screener. The major dural venous sinuses are patent. The aortic arch and proximal great vessels are widely patent. There is no significant stenosis, occlusion, or dissection identified within the bilateral common carotid, internal carotid, or vertebral arteries. IMPRESSION: 1. No significant stenosis, occlusion, or aneurysm within the [place]. 2. No significant stenosis, occlusion, or dissection identified within the carotid or vertebral arteries. ACT 112: Negative or not required by law. Electronically signed by: Jarrell Garcia M.D. 02/26/2022 12:10 PM Neck CTA 02/26/22 11:00 HEAD & NECK CTA HISTORY: Stroke Like Symptoms TECHNIQUE: Multiaxial CT images of the head were performed following the intravenous administration of contrast to evaluate the major cerebral vessels. Multiaxial CT images of the neck were also performed following the intravenous administration of contrast to evaluate the major cervical vessels. Maximum intensity projection images were also obtained. A dose lowering technique was u tilized adhering to the principles of ALARA. COMPARISON: None. FINDINGS: There is no mass, hematoma, midline shift, or acute infarct. Visualized intracranial internal carotid arteries, distal vertebral arteries, and basilar artery are widely patent. There is no significant stenosis, occlusion, or aneurysm seen within the bilateral ACAs, MCAs, or hearing screener. The major dural venous sinuses are patent. The aortic arch and proximal great vessels are widely patent. There is no significant stenosis, occlusion, or dissection identified within the bilateral common carotid, internal carotid, or vertebral arteries. IMPRESSION: 1. No significant stenosis, occlusion, or aneurysm within the [place]. 2. No significant stenosis, occlusion, or dissection identified within the carotid or vertebral arteries. ACT 112: Negative or not required by law. Electronically signed by: Jarrell Garcia M.D. 02/26/2022 12:10 PM Brain MRI 02/26/22 13:23 Brain MRI WITH AND WITHOUT CONTRAST HISTORY: Altered mental status. Short-term memory loss. TECHNIQUE: Multiplanar multisequence MRI of the brain was performed both before and after the intravenous administration of contrast. COMPARISON STUDY: Head CT 02/26/2022. FINDINGS: There are no areas of restricted diffusion to suggest acute infarction. Incidental note is made of a partially empty sella. The remaining midline structures are intact. Small retention cyst within the maxillary sinuses. Mild mucosal thickening within the ethmoid air cells. The orbits are unremarkable. The mastoid air cells are clear. The ventricles and sulci are within normal limits for age. There is no mass, hematoma, midline shift. The major vascular flow-voids at the skull base are well maintained. Postcontrast sequences show no areas of abnormal enhancement. IMPRESSION: No acute intracranial abnormality. ACT 112: Negative or not required by law. Electronically signed by: Jarrell Garcia M.D. 02/26/2022 3:17 PM Discharge Plan Visit Data Chief Complaint: Altered Mental Status Stated Complaint: SHORT TERM MEMORY LOSS ED Provider: Damien Nevarez Discharge Problem: Encephalitis, Memory loss Forms Stand Alone Forms: My True Office Prescriptions Prescriptions: No Action No Known Home Medications Referrals Referrals: PCP,NO [Physician] -
[2022-02-26 11:00] LABS: Basophils # (auto) 0.03 K/uL (0-0.2); Basophils % (auto) 0.5 %; Eosinophils # (auto) 0.05 K/uL (0-0.50); Eosinophils % (auto) 0.9 %; Hematocrit (blood only) 43.4 % (40.1-51.0); Immature Granulocytes # (auto) 0.01 K/uL (0.00-0.02); Immature Granulocytes % (auto) 0.2 %; Lymphocytes # (auto) 1.05 K/uL (1.2-3.4); Lymphocytes % (auto) 18.7 %; Mean Corpuscular Hemoglobin 29.3 pg (25.0-34.0); Mean Corpuscular Hgb Conc 34.6 g/dL (32.0-36.0); Mean Corpuscular Volume 84.8 fL (80.0-100.0); Mean Platelet Volume 10.9 fL (9.4-12.4); Monocytes # (auto) 0.33 K/uL (0.24-0.82); Monocytes % (auto) 5.9 %; Neutrophils # (auto) 4.14 K/uL (1.4-6.5); Neutrophils % (auto) 73.8 %; Platelet Count 180 K/uL (130-400); RDW Coefficient of Variation 12.9 % (11.5-14.5); RDW Standard Deviation 39.6 fL (36.4-46.3); Red Blood Count 5.12 M/uL (4.63-6.08); White Blood Count 5.61 K/ul (4.8-10.8)
[2022-02-26 11:15] LABS: Albumin Globulin Ratio 1.8 (0.9-2); Albumin Level 4.3 gm/dl (3.4-5.0); BUN Creatinine Ratio 7.2 (10-20); Bilirubin,Total 1.4 mg/dl (0.2-1.0); Calcium 9.4 mg/dl (8.5-10.1); Creatinine Clr Calc Pharmacy 106.2 ml/min; Est GFR (African American) 90.5 ml/min; Est GFR (Non-African American) 78.1 ml/min; Globulin 2.4 gm/dl (2.5-4.0); Magnesium 2.1 mg/dl (1.7-2.4); Potassium 3.7 mmol/L (3.5-5.1); Total Protein 6.7 gm/dl (6.0-8.3)
--- NOTE | 2022-02-26 11:28 | Electrocardiogram Report ---
Test Reason : Blood Pressure : / mmHG Vent. Rate : 079 BPM Atrial Rate : 079 BPM P-R Int : 152 ms QRS Dur : 090 ms QT Int : 394 ms P-R-T Axes : 054 044 050 degrees QTc Int : 451 ms Normal sinus rhythm Low voltage QRS Borderline ECG When compared with ECG of 01-JAN-2017 09:21, No significant change was found Confirmed by Carlos Saldnaa ([id number]) on 02/26/2022 11:27:47 AM Referred By: Confirmed By:Carlos Saldana
[2022-02-26] MEDS ORDERED: OPTIRAY 320 125ml IV ONE (11:54)
--- NOTE | 2022-02-26 12:08 | CT Scan Report ---
HEAD CT NONCONTRAST CT DOSE: HISTORY: Stroke Like Symptoms TECHNIQUE: Multiaxial CT images of the head were performed without the use of intravenous contrast. A utomated exposure control was utilized for this study. A dose lowering technique was utilized adheri ng to the principles of ALARA. Comparison: None. Findings: Mild mucosal thickening within the ethmoid air cells. The mastoid air cells are clear. The calvarium and skull base are intact. The ventricles and sulci are within normal limits. There is no m ass, hematoma, midline shift, or acute infarct. Impression: No acute intracranial abnormality. ACT 112: Negative or not required by law. Electronically signed by: Jarrell Garcia M.D. 02/26/2022 12:06 PM
--- NOTE | 2022-02-26 12:12 | CT Scan Report ---
HEAD & NECK CTA HISTORY: Stroke Like Symptoms TECHNIQUE: Multiaxial CT images of the head were performed following the intravenous administration o f contrast to evaluate the major cerebral vessels. Multiaxial CT images of the neck were also perform ed following the intravenous administration of contrast to evaluate the major cervical vessels. Maxim um intensity projection images were also obtained. A dose lowering technique was utilized adhering to the principles of ALARA. COMPARISON: None. FINDINGS: There is no mass, hematoma, midline shift, or acute infarct. Visualized intracranial internal carotid arteries, distal vertebral arteries, and basilar artery are widely patent. There is no significant s tenosis, occlusion, or aneurysm seen within the bilateral ACAs, MCAs, or distributor sales manager. The major dural venous sinuses are patent. The aortic arch and proximal great vessels are widely patent. There is no significant stenosis, occ lusion, or dissection identified within the bilateral common carotid, internal carotid, or vertebral arteries. IMPRESSION: 1. No significant stenosis, occlusion, or aneurysm within the [place]. 2. No significant stenosis, occlusion, or dissection identified within the carotid or vertebral arter ies. ACT 112: Negative or not required by law. Electronically signed by: Jarrell Garcia M.D. 02/26/2022 12:10 PM
--- NOTE | 2022-02-26 12:12 | CT Scan Report ---
HEAD & NECK CTA HISTORY: Stroke Like Symptoms TECHNIQUE: Multiaxial CT images of the head were performed following the intravenous administration o f contrast to evaluate the major cerebral vessels. Multiaxial CT images of the neck were also perform ed following the intravenous administration of contrast to evaluate the major cervical vessels. Maxim um intensity projection images were also obtained. A dose lowering technique was utilized adhering to the principles of ALARA. COMPARISON: None. FINDINGS: There is no mass, hematoma, midline shift, or acute infarct. Visualized intracranial internal carotid arteries, distal vertebral arteries, and basilar artery are widely patent. There is no significant s tenosis, occlusion, or aneurysm seen within the bilateral ACAs, MCAs, or shear assembler. The major dural venous sinuses are patent. The aortic arch and proximal great vessels are widely patent. There is no significant stenosis, occ lusion, or dissection identified within the bilateral common carotid, internal carotid, or vertebral arteries. IMPRESSION: 1. No significant stenosis, occlusion, or aneurysm within the [place]. 2. No significant stenosis, occlusion, or dissection identified within the carotid or vertebral arter ies. ACT 112: Negative or not required by law. Electronically signed by: Jarrell Garcia M.D. 02/26/2022 12:10 PM
[2022-02-26 12:18] LABS: Appearance Urine Clear (Clear); Bilirubin Urine Negative (Negative); Blood Urine Negative (Negative); Color Urine Yellow; Glucose Urine UA Negative (Negative); Ketones Urine Negative (Negative); Leukocyte Esterase Urine Negative (Negative); Nitrite Urine Negative (Negative); Protein Urine Negative (Negative); Specific Gravity Urine 1.022 (1.000-1.030); Urobilinogen Urine Negative (Negative); pH Urine 7.5 (4.5-7.5)
[2022-02-26] MEDS ORDERED: GADOBUTROL 65ML VIAL IV ONE (15:00)
--- NOTE | 2022-02-26 15:20 | Magnetic Resonance Report ---
Brain MRI WITH AND WITHOUT CONTRAST HISTORY: Altered mental status. Short-term memory loss. TECHNIQUE: Multiplanar multisequence MRI of the brain was performed both before and after the intrave nous administration of contrast. COMPARISON STUDY: Head CT 02/26/2022. FINDINGS: There are no areas of restricted diffusion to suggest acute infarction. Incidental note is made of a partially empty sella. The remaining midline structures are intact. Small retention cyst wi thin the maxillary sinuses. Mild mucosal thickening within the ethmoid air cells. The orbits are unre markable. The mastoid air cells are clear. The ventricles and sulci are within normal limits for age. There is no mass, hematoma, midline shift. The major vascular flow-voids at the skull base are well maintained. Postcontrast sequences show no areas of abnormal enhancement. IMPRESSION: No acute intracranial abnormality. ACT 112: Negative or not required by law. Electronically signed by: Jarrell Garcia M.D. 02/26/2022 3:17 PM
[2022-02-26] MEDS ORDERED: LIDOCAINE 2% 2 ML VIAL/AMP(20MG/ML) INFIL STA (15:23)
[2022-02-26] MEDS ORDERED: LIDOCAINE 2% LOCAL 50 ML VIAL ONE (15:27)
[2022-02-26 16:00] LABS: Lyme Ab IgG w/WB Rflx Negative (Negative); Lyme Ab IgM w/WB Rflx Negative (Negative)
[2022-02-26 16:38] LABS: Appearance CSF Clear; CSF Count Tube # 3; CSF Xanthrochromic No xanthochromia; Color CSF Colorless; Red Blood Cell CSF (A) 1 /uL (0-); Red Blood Cell CSF (B) 1 /uL (0-); Total Protein CSF 45.5 mg/dl (15-45); White Blood Cell CSF (A) 6 /uL (0-5); White Blood Cell CSF (B) 3 /uL (0-5)
[2022-02-26] MEDS ORDERED: VANCOMYCIN CONSULT ACTIVE PRN (16:50)
[2022-02-26] MEDS ORDERED: ACYCLOVIR SOD IV ONE (16:50)
[2022-02-26] MEDS ORDERED: cefTRIAXone SODIUM 2,000 MG/70 ML BAG IV STA (16:50)
[2022-02-26] MEDS ORDERED: dexAMETHasone**PF** 10 MG/ML VIAL IV ONE (16:50)
[2022-02-26] MEDS ORDERED: DEXTROSE 5% IV ONE (16:50)
[2022-02-26] MEDS ORDERED: VANCOMYCIN HCL 2,500 MG in SODIUM CHLORIDE 0.9% 500 ML IV ONE (16:50)
--- NOTE | 2022-02-26 17:19 | History & Physical Report ---
Date of Service February 26, 2022 Assessment & Plan (1) Encephalopathy: (2) Memory loss: Plan: -Admit to med surg -Imaging studies including CT and CTA of the head and neck are negative -MRI of the brain is negative for acute encephalitis, shows small retention cyst in the sinuses -elevated CRP= 1.45, LP with CSF of 6, Protein 45.5, negative for all viruses on biofire including HSV, enterovirus, CMV, VZV. [place] is pending. Gram stain is negative for organisms. - Stop acyclovir 1200 mg IV Q8 - reached out to ID with [facility] regarding continuing treatment vs dc at this time. - Discussion with ID at [facility] via phone held with Dr. Lane and does not recommend continuation of either antibiotics or antivirals after reviewing LP results. Recommends peripheral smear, and possible bone marrow biopsy. Will formally consult their team for eval - appreciate recs. -Stop IV Vanco and Zosyn as does not appear to be bacterial -Neurology consulted-EEG per neurology request - appreciate recs - Checking B12, thiamine, ammonia - ? consider paraneoplastic syndrome - will obtain peripheral smear, can also consider bone marrow biopsy (would need to do as outpt) (3) Obesity (BMI 30-39.9): Plan: - notes that the patient has been losing weight since September, purposely, within the past 2 months appetite seems to have decreased and patient continues to lose weight -BMI of 38.3 - Will obtain CT of the chest and pelvix to r/o possible underlying malignancy DVT PPx: - teds, scds CODE: Full code Dispo: From home, likely to remain in the hospital x 1-2 days History of Present Illness Chief Complaint: [facility] Primary Care Provider: Maciel Martínez DO This is a 46 yo M without past medical history who had acute respiratory infection back in November. He struggles with remembering basic things like peoples names, and was repeating himself. His is concerned that there is a level of confusion present that was not there prior to November. During November their entire family had respiratory illnesses and he was placed on Augmentin for sinusitis and completed the course. He and his family have recently been traveling to areas including [place], [place] for baseball tournaments. Denies any known spider bites, tick bites, etc. notes that his confusion has significantly worsened in the past week whenever he was sleep deprived after taking turns driving home from the beach overnight where he got only 2 hours of sleep. They visited [facility] and during the trip, his family noticed that he was forgetting what they were just recently speaking about. Of note, mentions he was trying to lose weight last September, but since November has consistently had a decreased appetite and has lost quite a bit of weight, maybe over ~20lbs. Denies night sweats or swollen lymph nodes. Their PCP referred them to neurology after a visit in the office yesterday on 02/25/22. Today in the ER the labs are essentially unremarkable. Brain MRI is negative other than showing small retention cyst within the maxillary sinuses, H ead and neck CT and CTA are negative. LP was obtained in the ER and cultures are pending, gram stain is negative for organisms, protein is elevated at 45, CRP is elevated at 1.45. Neurology has requested additional studies including EEG. A Lymes, Biofire and other infectious workup is pending. Pt has been started on vanc, zosyn in the ER as well as loaded with acyclovir IV. The patient, his and his sister in law are present. Patient himself has difficulty recalling what has happened, and he asks a similar question several times during my visit today Ex." what is going on, what do you think is the problem?", he does not recall getting imaging, nor having a lumbar puncture today. He thanks me at least 4 times, and is tearful at times. Allergies Allergy/AdvReac Type Severity Reaction Status Date / Time No Known Allergies Allergy Unverified 02/26/22 13:43 Home Medications Medication Instructions Recorded Confirmed Type No Known Home Medications 02/26/22 02/26/22 History Past Med/Surg History Medical History (Updated 02/26/22 @ 20:35 by Nuvia Schwartz DO) Foot fracture, left Obesity (BMI 30-39.9) Surgical History (Updated 02/26/22 @ 18:02 by Iliana Morgan PA-C) Hx of tonsillectomy Family History (Updated 02/26/22 @ 18:06 by Iliana Morgan PA-C) Mother Diabetes Heart disease COPD (chronic obstructive pulmonary disease) Social History (Updated 02/26/22 @ 18:02 by CHACHO Arroyo Smoking Status: Never smoker Hx Alcohol Use: No Hx Substance Use: No Preferred Language: Setswana Feels Safe at Home: Yes Review of Systems Review of Systems: Constitutional: No fever, sweats or chills, no headache Eyes: No diplopia, no worsening or blurred vision ENT: normal hearing, no trouble swallowing Respiratory: No cough, sputum, dyspnea at rest or on exertion Cardiovascular: No chest pain, tightness or palpitations Abdomen: No pain, nausea, vomiting, diarrhea or constipation Musculoskeletal: No joint pain, calf pain, swelling Neurologic: + memory loss and AMS as per HPI. No weakness, numbness/tingling, or balance problems Psychiatric: No anxiety or depression Skin: No rash or itch Physical Exam Physical Exam: General: awake, alert, no apparent distress, obese with BMI of 38.3 Head: Normocephalic, atraumatic ENT: PERRL, EOMI, no pharyngeal exudate, mucous membranes moist Chest: Clear to auscultation, on room air, no adventitious breath sounds Cardiac: Regular rate and rhythm, no murmur, no JVD, normal peripheral pulses, good capillary refill Abdominal: NABS x 4 quadrants, soft, nondistended, nontender to palpation, no rebound or guarding Extremities: Normal inspection, no peripheral edema or erythema, calfs nontender to palpation Psych: Normal mood and affect Neuro: AAO x 3, strength intact bilaterally and rated 5/5, no motor deficits, speech is clear, no peripheral sensory deficits Results & Data Results & Data ([facility]) Vital Signs (Past 12 Hours) Vital Signs Temp Pulse Resp BP Pulse Ox O2 Del Method 02/26/22 16:00 75 20 95 02/26/22 16:00 150/87 H 02/26/22 15:17 16 96 02/26/22 15:17 136/92 02/26/22 14:00 96 02/26/22 14:00 136/87 02/26/22 13:30 93 02/26/22 13:30 132/83 02/26/22 13:00 94 02/26/22 13:00 129/80 02/26/22 12:30 96 02/26/22 12:30 135/93 02/26/22 12:01 137/80 02/26/22 12:01 96 02/26/22 11:30 64 20 91 02/26/22 11:30 111/76 02/26/22 11:00 78 18 95 02/26/22 11:00 132/81 02/26/22 10:54 96 Room Air 02/26/22 10:21 36.9 C 86 18 141/90 H 96 Room Air Laboratory Results 02/26/22 15:45 Gram Stain - Final Cerebral Spinal Fluid CSF Culture - Pending 02/26/22 02/26/22 02/26/22 15:45 15:45 15:13 WBC RBC Hgb Hct MCV MCH MCHC RDW Std Deviation RDW Coeff of Aurelio Plt Count MPV Immature Gran % (Auto) Neut % (Auto) Lymph % (Auto) Woodruff % (Auto) Eos % (Auto) Baso % (Auto) Neut # (Auto) Lymph # (Auto) Woodruff # (Auto) Eos # (Auto) Baso # (Auto) Immature Gran # (Auto) ESR Sodium Potassium Chloride Carbon Dioxide Anion Gap BUN Creatinine Est Cr Clr Drug Dosing Est GFR ( Amer) Est GFR (Non-Af Amer) BUN/Creatinine Ratio Glucose Calcium Magnesium Total Bilirubin AST ALT Alkaline Phosphatase C-Reactive Protein Total Protein Albumin Globulin Albumin/Globulin Ratio TSH Urine Color Urine Appearance Urine pH Ur Specific [place] Urine Protein Urine Glucose (UA) Urine Ketones Urine Blood Urine Nitrite Urine Bilirubin Urine Urobilinogen Ur Leukocyte Esterase Fluid Comment CSF Appearance Clear CSF Color Colorless Xanthrochromic No xanthochromia CSF WBC 6 H CSF RBC 1 CSF Cell Count Tube # 3 CSF Chemistry Tube # 1 CSF Glucose 64 CSF Total Protein 45.5 H Lyme Disease IgG Ab Lyme Disease IgM Ab SARS-CoV-2, RNA, NAAT NEGATIVE 02/26/22 02/26/22 02/26/22 12:00 10:44 10:44 WBC RBC Hgb Hct MCV MCH MCHC RDW Std Deviation RDW Coeff of Aurelio Plt Count MPV Immature Gran % (Auto) Neut % (Auto) Lymph % (Auto) Woodruff % (Auto) Eos % (Auto) Baso % (Auto) Neut # (Auto) Lymph # (Auto) Woodruff # (Auto) Eos # (Auto) Baso # (Auto) Immature Gran # (Auto) ESR Sodium Potassium Chloride Carbon Dioxide Anion Gap BUN Creatinine Est Cr Clr Drug Dosing Est GFR ( Amer) Est GFR (Non-Af Amer) BUN/Creatinine Ratio Glucose Calcium Magnesium Total Bilirubin AST ALT Alkaline Phosphatase C-Reactive Protein 1.23 H Total Protein Albumin Globulin Albumin/Globulin Ratio TSH Urine Color Yellow Urine Appearance Clear Urine pH 7.5 Ur Specific [place] 1.022 Urine Protein Negative Urine Glucose (UA) Negative Urine Ketones Negative Urine Blood Negative Urine Nitrite Negative Urine Bilirubin Negative Urine Urobilinogen Negative Ur Leukocyte Esterase Negative Fluid Comment CSF Appearance CSF Color Xanthrochromic CSF WBC CSF RBC CSF Cell Count Tube # CSF Chemistry Tube # CSF Glucose CSF Total Protein Lyme Disease IgG Ab Negative Lyme Disease IgM Ab Negative SARS-CoV-2, RNA, NAAT 02/26/22 02/26/22 02/26/22 10:39 10:39 10:39 WBC RBC Hgb Hct MCV MCH MCHC RDW Std Deviation RDW Coeff of Aurelio Plt Count MPV Immature Gran % (Auto) Neut % (Auto) Lymph % (Auto) Woodruff % (Auto) Eos % (Auto) Baso % (Auto) Neut # (Auto) Lymph # (Auto) Woodruff # (Auto) Eos # (Auto) Baso # (Auto) Immature Gran # (Auto) ESR 10 Sodium 139 Potassium 3.7 Chloride 106 Carbon Dioxide 24 Anion Gap 9 BUN 8 Creatinine 1.11 Est Cr Clr Drug Dosing 106.2 Est GFR ( Amer) 90.5 Est GFR (Non-Af Amer) 78.1 BUN/Creatinine Ratio 7.2 L Glucose 120 H Calcium 9.4 Magnesium 2.1 Total Bilirubin 1.4 H AST 40 H ALT 49 Alkaline Phosphatase 53 C-Reactive Protein Total Protein 6.7 Albumin 4.3 Globulin 2.4 L Albumin/Globulin Ratio 1.8 TSH 2.529 Urine Color Urine Appearance Urine pH Ur Specific [place] Urine Protein Urine Glucose (UA) Urine Ketones Urine Blood Urine Nitrite Urine Bilirubin Urine Urobilinogen Ur Leukocyte Esterase Fluid Comment CSF Appearance CSF Color Xanthrochromic CSF WBC CSF RBC CSF Cell Count Tube # CSF Chemistry Tube # CSF Glucose CSF Total Protein Lyme Disease IgG Ab Lyme Disease IgM Ab SARS-CoV-2, RNA, NAAT 02/26/22 10:39 WBC 5.61 RBC 5.12 Hgb 15.0 Hct 43.4 MCV 84.8 MCH 29.3 MCHC 34.6 RDW Std Deviation 39.6 RDW Coeff of Aurelio 12.9 Plt Count 180 MPV 10.9 Immature Gran % (Auto) 0.2 Neut % (Auto) 73.8 Lymph % (Auto) 18.7 Woodruff % (Auto) 5.9 Eos % (Auto) 0.9 Baso % (Auto) 0.5 Neut # (Auto) 4.14 Lymph # (Auto) 1.05 L [place]ruff # (Auto) 0.33 Eos # (Auto) 0.05 Baso # (Auto) 0.03 Immature Gran # (Auto) 0.01 ESR Sodium Potassium Chloride Carbon Dioxide Anion Gap BUN Creatinine Est Cr Clr Drug Dosing Est GFR ( Amer) Est GFR (Non-Af Amer) BUN/Creatinine Ratio Glucose Calcium Magnesium Total Bilirubin AST ALT Alkaline Phosphatase C-Reactive Protein Total Protein Albumin Globulin Albumin/Globulin Ratio TSH Urine Color Urine Appearance Urine pH Ur Specific [place] Urine Protein Urine Glucose (UA) Urine Ketones Urine Blood Urine Nitrite Urine Bilirubin Urine Urobilinogen Ur Leukocyte Esterase Fluid Comment CSF Appearance CSF Color Xanthrochromic CSF WBC CSF RBC CSF Cell Count Tube # CSF Chemistry Tube # CSF Glucose CSF Total Protein Lyme Disease IgG Ab Lyme Disease IgM Ab SARS-CoV-2, RNA, NAAT Diagnostic Findings Head CT 02/26/22 11:[address] DOSE: HISTORY: Stroke Like Symptoms TECHNIQUE: Multiaxial CT images of the head were performed without the use of intravenous contrast. Automated exposure control was utilized for this study. A dose lowering technique was utilized adhering to the principles of ALARA. Comparison: None. Findings: Mild mucosal thickening within the ethmoid air cells. The mastoid air cells are clear. The calvarium and skull base are intact. The ventricles and sulci are within normal limits. There is no mass, hematoma, midline shift, or acute infarct. Impression: No acute intracranial abnormality. ACT 112: Negative or not required by law. Electronically signed by: Jarrell Garcia M.D. 02/26/2022 12:06 PM Head CTA 02/26/22 11:00 HEAD & NECK CTA HISTORY: Stroke Like Symptoms TECHNIQUE: Multiaxial CT images of the head were performed following the i ntravenous administration of contrast to evaluate the major cerebral vessels. Multiaxial CT images of the neck were also performed following the intravenous administration of contrast to evaluate the major cervical vessels. Maximum intensity projection images were also obtained. A dose lowering technique was utilized adhering to the principles of ALARA. COMPARISON: None. FINDINGS: There is no mass, hematoma, midline shift, or acute infarct. Visualized intracranial internal carotid arteries, distal vertebral arteries, and basilar artery are widely patent. There is no significant stenosis, occlusion, or aneurysm seen within the bilateral ACAs, MCAs, or director of business services. The major dural venous sinuses are patent. The aortic arch and proximal great vessels are widely patent. There is no significant stenosis, occlusion, or dissection identified within the bilateral common carotid, internal carotid, or vertebral arteries. IMPRESSION: 1. No significant stenosis, occlusion, or aneurysm within the [place] of [place]. 2. No significant stenosis, occlusion, or dissection identified within the carotid or vertebral arteries. ACT 112: Negative or not required by law. Electronically signed by: Jarrell Garcia M.D. 02/26/2022 12:10 PM Neck CTA 02/26/22 11:00 HEAD & NECK CTA HISTORY: Stroke Like Symptoms TECHNIQUE: Multiaxial CT images of the head were performed following the intravenous administration of contrast to evaluate the major cerebral vessels. Multiaxial CT images of the neck were also performed following the intravenous administration of contrast to evaluate the major cervical vessels. Maximum intensity projection images were also obtained. A dose lowering technique was utilized adhering to the principles of ALARA. COMPARISON: None. FINDINGS: There is no mass, hematoma, midline shift, or acute infarct. Visualized intracranial internal carotid arteries, distal vertebral arteries, and basilar artery are widely patent. There is no significant stenosis, occlusion, or aneurysm seen within the bilateral ACAs, MCAs, or director of business services. The major dural venous sinuses are patent. The aortic arch and proximal great vessels are widely patent. There is no significant stenosis, occlusion, or dissection identified within the bilateral common carotid, internal carotid, or vertebral arteries. IMPRESSION: 1. No significant stenosis, occlusion, or aneurysm within the [place] of [place]. 2. No significant stenosis, occlusion, or dissection identified within the carotid or vertebral arteries. ACT 112: Negative or not required by law. Electronically signed by: Jarrell Garcia M.D. 02/26/2022 12:10 PM Brain MRI 02/26/22 13:23 Brain MRI WITH AND WITHOUT CONTRAST HISTORY: Altered mental status. Short-term memory loss. TECHNIQUE: Multiplanar multisequence MRI of the brain was performed both before and after the intravenous administration of contrast. COMPARISON STUDY: Head CT 02/26/2022. FINDINGS: There are no areas of restricted diffusion to suggest acute infarction. Incidental note is made of a partially empty sella. The remaining midline structures are intact. Small retention cyst within the maxillary sinuses. Mild mucosal thickening within the ethmoid air cells. The orbits are unremarkable. The mastoid air cells are clear. The ventricles and sulci are within normal limits for age. There is no mass, hematoma, midline shift. The major vascular flow-voids at the skull base are well maintained. Postcontrast sequences show no areas of abnormal enhancement. IMPRESSION: No acute intracranial abnormality. ACT 112: Negative or not required by law. Electronically signed by: Jarrell Garcia M.D. 02/26/2022 3:17 PM Code Status & VTE Plan Code Status Full code Supervising Physician Co-Signing Physician Notes I have seen and examined the patient and have discussed the case with the provider above. I agree with the assessment and plan as stated. 46-year-old man presents to the emergency room reporting progressive worsening of memory loss and intermittent confusion. Loss of appetite and lethargy is also noted by who describes the changes as a change in personality. Specifically there is a decreased libido, and a description of this loud personality becoming very mild. As a result of low appetite he has gone from 300 pounds to roughly 230 pounds since September. 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 There was recent travel to [facility] in [place] for a kids sports circuit. There was no swimming in fresh water, no known tick bites or mosquito bites, no illness during this time including no gastroenteritis, no shellfish was consumed. The patient spends most of his time with his teenage children and is starting a fitness business. Clinically there have been no fevers or chills. There was an illness consistent with maxillary sinusitis in November which is when the symptoms were first noted. This was treated with Augmentin and others in the family were sick. COVID was suspected but never found on home testing. There have been no recent vaccinations. There is no difficulty with gait or other strokelike symptoms that are reported. Work-up in the ER today reveals a normal head CT normal head and neck CTA and a normal brain MRI. There is no evidence of mastoiditis. CBC reveals a normal white blood cell count with lymphopenia on the differential. CRP is slightly elevated to 1.23 with a normal ESR. Electrolytes and kidney function are normal. Bilirubin is slightly elevated to 1.4 with an AST of 40 ALT of 49 and normal alk phos of 53. There are no prior liver function studies to compare to in the outpatient setting. Total protein is normal at 6.7 albumin is normal at 4.3. Urinalysis is clear. He underwent a lumbar puncture showing clear colorless CSF with a white blood cell count of 6, glucose that was normal at 64 and total protein that was high normal at 45.5. CSF PCR revealed no cryptococcus with a negative bacterial and viral panel including CMV enterovirus, HSV, para echovirus, and VZV. Gram stain is negative with few white blood cells seen. CSF culture is pending. Physical exam reveals a nonfocal normal neurologic assessment aside from the fact the patient appears confused and has a tendency to ask for the information again. He reports knowing he is confused at times. Full skin exam was performed and was normal aside from some slight irritation consistent with a raised red rash on the base of his left neck. Looks consistent with a razor burn. There is no abdominal pain to palpation, normal heart and lung exam. Gait was not assessed but he was able to complete [id number] bilaterally, bilateral rapid alternating movements and bilateral [id number] without issue. There was no difficulties with speech noted and cranial nerves were intact. Sensation was intact. Strength was intact throughout. There were normal 2+ brachioradialis reflexes and 2+ DTR at the knees bilaterally. Encephalopathy of undetermined origin. CSF panel is still awaiting a West Nile virus. Viral etiology considered possible given mild lymphopenia elevated CRP and the season with recent travel. Lyme serology is negative. Family members were all sick with something in November which seemed the time this started. ?Covid infection that wasn't caught with persistent encephalopathy as a cause. No family members nor patient had a positive covid Ag on home test per . Also, not present in record, but reports patient had a negative covid PCR test in November. Other cause of encephalopathy considered may be a paraneoplastic syndrome, lori considering patient has lost >50 lbs in the last few months. Will obtain peripheral smear and CT chest, abd, pelvis to look for obvious malignancy. Bone marrow biopsy may be considered as outpatient. HIV was considered but felt to be less likely at this time given history. Will consider if workup continues to be negative. Consider paraneoplastic panel after Neurology evaluation and thoughts. Empirically treat for thiamine deficiency and obtain B12/folate. TSH is normal. Will not continue antiviral or antibiotics given negative CSF panel. No need to continue steroids at this time. ID consult placed and peripherally spoke to ID director operations broadcast at [facility] who agrees with this. Monitor on telemetry. Nuvia Schwartz DO [facility]
[2022-02-26 18:22] LABS: Cryptococcus neoformans/ga PCR Not Detected (NotDetected); Cytomegalovirus PCR Not Detected (NotDetected); Enterovirus PCR Not Detected (NotDetected); Escherichia coli K1 PCR Not Detected (NotDetected); Haemophilius influenzae PCR Not Detected (NotDetected); Herpes Simplex Virus 1 PCR Not Detected (NotDetected); Herpes Simplex Virus 2 PCR Not Detected (NotDetected); Human Herpes Virus 6 PCR Not Detected (NotDetected); Human Parechovirus PCR Not Detected (NotDetected); Listeria monocytogenes PCR Not Detected (NotDetected); Neisseria meningitidis PCR Not Detected (NotDetected); Streptococcus agalactiae PCR Not Detected (NotDetected); Streptococcus pneumoniae PCR Not Detected (NotDetected); Varicella Zoster Virus PCR Not Detected (NotDetected)
--- NOTE | 2022-02-26 18:51 | Communication Note ---
Date of Service: February 26, 2022 46-year-old man presents to the emergency room reporting progressive worsening of memory loss and intermittent confusion. Loss of appetite and lethargy is also noted by who describes the changes as a change in personality. Specifically there is a decreased libido, and a description of this loud personality becoming very mild. As a result of low appetite he has gone from 300 pounds to roughly 230 pounds since September. 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 There was recent travel to [facility] in [place] for a [employer] sports circuit. There was no swimming in fresh water, no known tick bites or mosquito bites, no illness during this time including no gastroenteritis, no shellfish was consumed. The patient spends most of his time with his teenage children and is starting a fitness business. Clinically there have been no fevers or chills. There was an illness consistent with maxillary sinusitis in November which is when the symptoms were first noted. This was treated with Augmentin and others in the family were sick. COVID was suspected but never found on home testing. There have been no recent vaccinations. There is no difficulty with gait or other strokelike symptoms that are reported. Work-up in the ER today reveals a normal head CT normal head and neck CTA and a normal brain MRI. There is no evidence of mastoiditis. CBC reveals a normal white blood cell count with lymphopenia on the differential. CRP is slightly elevated to 1.23 with a normal ESR. Electrolytes and kidney function are normal. Bilirubin is slightly elevated to 1.4 with an AST of 40 ALT of 49 and normal alk phos of 53. There are no prior liver function studies to compare to in the outpatient setting. Total protein is normal at 6.7 albumin is normal at 4.3. Urinalysis is clear. He underwent a lumbar puncture showing clear colorless CSF with a white blood cell count of 6, glucose that was normal at 64 and total protein that was high normal at 45.5. CSF PCR revealed no cryptococcus with a negative bacterial and viral panel including CMV enterovirus, HSV, para echovirus, and VZV. Gram stain is negative with few white blood cells seen. CSF culture is pending. Physical exam reveals a nonfocal normal neurologic assessment aside from the fact the patient appears confused and has a tendency to ask for the information again. He reports knowing he is confused at times. Full skin exam was performed and was normal aside from some slight irritation consistent with a raised red rash on the base of his left neck. Looks consistent with a razor burn. There is no abdominal pain to palpation, normal heart and lung exam. Gait was not assessed but he was able to complete [id number] bilaterally, bilateral rapid alternating movements and bilateral [id number] without issue. There was no difficulties with speech noted and cranial nerves were intact. Sensation was intact. Strength was intact throughout. There were normal 2+ brachioradialis reflexes and 2+ DTR at the knees bilaterally. Encephalopathy of undetermined origin. CSF panel is still awaiting a West Nile virus. Viral etiology considered possible given mild lymphopenia elevated CRP and the season with recent travel. Lyme serology is negative. Family members were all sick with something in November which seemed the time this started. ?Covid infection that wasn't caught with persistent encephalopathy as a cause. No family members nor patient had a positive covid Ag on home test per . Also, not present in record, but reports patient had a negative covid PCR test in November. Other cause of encephalopathy considered may be a paraneoplastic syndrome, lori considering patient has lost >50 lbs in the last few months. Will obtain peripheral smear and CT chest, abd, pelvis to look for obvious malignancy. Bone marrow biopsy may be considered as outpatient. HIV was consi dered but felt to be less likely at this time given history. Will consider if workup continues to be negative. Consider paraneoplastic panel after Neurology evaluation and thoughts. Empirically treat for thiamine deficiency and obtain B12/folate. TSH is normal. Will not continue antiviral or antibiotics given negative CSF panel. No need to continue steroids at this time. ID consult placed and peripherally spoke to ID cloud solutions architect at [facility] [place] who agrees with this. Monitor on telemetry. Nuvia Schwartz DO [facility]
[2022-02-26] MEDS ORDERED: ACETAMINOPHEN 325 MG TAB PO PRN (20:59)
[2022-02-26] MEDS ORDERED: THIAMINE HCL 100 MG in SYRINGE 9 ML IV STA (20:59)
[2022-02-26] MEDS ORDERED: ONDANSETRON INJ 2 MG/ML 2 ML VIAL IV PRN (20:59)
[2022-02-26] MEDS: ENOXAPARIN INJ 40 MG/0.4 ML SYR SQ SCH (23:01)
--- NOTE | 2022-02-27 06:30 | Ultrasound Report ---
ULTRASOUND RIGHT UPPER QUADRANT ABDOMEN CLINICAL HISTORY: Elevated hepatic transaminases. COMPARISON STUDY: Abdominal CT dated 02/26/2022 TECHNIQUE: Real-time, grayscale, and color flow sonography of the right upper quadrant of the abdomen was performed. Images are reviewed in the transverse and longitudinal planes. FINDINGS: Liver: The liver is mildly enlarged and demonstrates heterogeneously increased echotexture indicating severe steatosis. Note that this degrades acoustic penetration of the liver. Fatty sparing is seen a djacent to gallbladder fossa. There is no intrahepatic biliary ductal dilatation. The main portal vei n is patent. Gallbladder: The gallbladder is normal in appearance. No gallstones are identified. There is no gallb ladder wall thickening or pericholecystic fluid. A sonographic Fuentes's sign is reportedly absent. Th e common bile duct measures up to 0.4 cm in diameter. Pancreas: Nonvisualized due to overlying bowel gas. Right kidney: Survey images of the right kidney demonstrate normal size and echotexture. There is no hydronephrosis. Ascites: None. IMPRESSION: 1. No acute sonographic abnormality is seen in the right upper quadrant. No gallstones are identified . 2. Hepatomegaly and severe hepatic steatosis. ACT 112: Negative or not required by law. Electronically signed by: Ludwin Palafox M.D. 02/27/2022 6:29 AM
[2022-02-27 07:33] LABS: Hematocrit (blood only) 42.6 % (40.1-51.0); Hemoglobin 14.9 g/dl (14.0-18.0); Mean Corpuscular Hemoglobin 28.9 pg (25.0-34.0); Mean Corpuscular Volume 82.6 fL (80.0-100.0); Platelet Count 187 K/uL (130-400); RDW Coefficient of Variation 12.6 % (11.5-14.5); RDW Standard Deviation 37.8 fL (36.4-46.3); Red Blood Count 5.16 M/uL (4.63-6.08); White Blood Count 7.29 K/ul (4.8-10.8)
--- NOTE | 2022-02-27 07:48 | CT Scan Report ---
CT SCAN OF THE CHEST, ABDOMEN, AND PELVIS WITHOUT IV CONTRAST CLINICAL HISTORY: Unintended weight loss. COMPARISON STUDY: Chest CT dated 01/01/2017. Abdominal CT dated 04/24/2008. TECHNIQUE: Unenhanced CT scan of the chest, abdomen, and pelvis was performed from the thoracic inlet to the proximal femora. Images are reviewed in the axial, sagittal, and coronal planes. IV contrast was not administered for this examination. Note that the examination was performed in significantly s uboptimal fashion without oral and IV contrast. A dose lowering technique was utilized adhering to t he principles of ALARA. CT DOSE: 2260.66 mGy.cm FINDINGS: CHEST: Thyroid: Imaged portions of the thyroid gland are normal in size and attenuation. Thoracic aorta: The thoracic aorta is normal in caliber and demonstrates standard 3-vessel arch anato my. Heart: The heart is normal in size and without pericardial effusion. There are scattered coronary art flakita calcifications. Lungs and pleural spaces: The lungs and pleural spaces are clear noting dependent atelectasis. The tr achea and central airways are patent. Mediastinum: There is no mediastinal lymphadenopathy. Thuy: Not well assessed without IV contrast. Axillae: There is no axillary lymphadenopathy. Bony thorax: No lytic or blastic lesions are identified. ABDOMEN AND PELVIS: Liver: The unenhanced liver is enlarged, measuring 22 cm in length. The liver demonstrates diffusely diminished attenuation consistent with severe hepatic steatosis. Fatty sparing is seen adjacent to ga llbladder fossa. There is no intrahepatic biliary ductal dilatation. Gallbladder: Hyperdense material within the gallbladder likely represents vicariously excreted contra st. The gallbladder is otherwise normal in appearance. Spleen: The spleen is enlarged measuring 16.7 cm in length. Pancreas: The pancreas is moderately atrophic. There is the suggestion of a 2.9 x 2.2 cm soft tissue lesion within or adjacent to the pancreatic head on image #183. Additionally, there are least 2 enlar ged peripancreatic lymph nodes seen on image #161 measuring 2.1 x 1.8 cm and on image #177 measuring 1.8 x 1.6 cm. The pancreatic duct is normal in caliber. Adrenal glands: Unremarkable. Kidneys: The unenhanced kidneys are normal in size and without hydronephrosis. Excreted IV contrast f ills the renal collecting systems and ureters. This degrades assessment for renal calculi. There is n o evidence of contour deforming mass lesion. Abdominal vasculature: The abdominal aorta is normal in course and caliber. Bowel: There is mild to moderate colonic diverticulosis without CT evidence of acute diverticulitis. No bowel obstruction is seen. The appendix is well-visualized and normal. Peritoneum: There is no intraperitoneal free air or abdominal ascites. There is a fat-containing umbi lical hernia. Lymphadenopathy: As noted above there are enlarged peripancreatic lymph nodes. No additional patholog ically enlarged lymph nodes are seen in the abdomen or pelvis. Pelvic viscera: Excreted IV contrast fills the bladder. The bladder is otherwise normal as visualized . The prostate and seminal vesicles are normal as imaged. Skeletal structures: No lytic or blastic lesions are seen. IMPRESSION: 1. Significantly suboptimal examination without oral and IV contrast. 2. There is a 2.9 cm soft tissue lesion within or adjacent to the pancreatic head. This could represe nt enlarged lymph node versus a primary pancreatic mass lesion. GI follow-up is recommended for possi ble endoscopic ultrasound with biopsy. 3. There are enlarged peripancreatic lymph nodes. 4. No additional pathologically enlarged lymph nodes are identified in the chest, abdomen, or pelvis. 5. Hepatomegaly and severe steatosis. 6. Splenomegaly. 7. The lungs are clear. 8. Colonic diverticulosis without CT evidence of acute diverticulitis. 9. Additional findings as above. ACT 112: Negative or not required by law. Electronically signed by: Ludwin Palafox M.D. 02/27/2022 7:46 AM
[2022-02-27 08:06] LABS: Albumin Globulin Ratio 1.9 (0.9-2); Albumin Level 4.3 gm/dl (3.4-5.0); BUN Creatinine Ratio 11.4 (10-20); Bilirubin,Total 1.1 mg/dl (0.2-1.0); Calcium 9.8 mg/dl (8.5-10.1); Creatinine Clr Calc Pharmacy 112.2 ml/min; Est GFR (African American) 96.8 ml/min; Est GFR (Non-African American) 83.5 ml/min; Globulin 2.3 gm/dl (2.5-4.0); Potassium 4.1 mmol/L (3.5-5.1); Total Protein 6.6 gm/dl (6.0-8.3)
[2022-02-27 08:14] LABS: Folate (Folic Acid) 9.61 ng/ml (>5.38)
[2022-02-27] MEDS: THIAMINE HCL 100 MG in SYRINGE 9 ML IV SCH (09:55)
[2022-02-27] MEDS: ENOXAPARIN INJ 40 MG/0.4 ML SYR SQ SCH ×2 (09:55→20:16)
[2022-02-27] MEDS ORDERED: OPTIRAY 320 100ml IV ONE (12:24)
--- NOTE | 2022-02-27 12:50 | CT Scan Report ---
CT SCAN OF THE ABDOMEN COMBO PANCREAS PROTOCOL CLINICAL HISTORY: Pancreatic mass/lymph nodes. COMPARISON STUDY: Unenhanced abdominal CT dated 02/26/2022. TECHNIQUE: Before and following the IV administration of 95 cc of Optiray 320, CT scan of the abdome n and pelvis is performed from the lung bases to the pelvic inlet using the pancreas protocol. Images are reviewed in the axial, sagittal, and coronal planes. IV contrast was administered without compli cation. A dose lowering technique was utilized adhering to the principles of ALARA. CT DOSE: 1926.81 mGycm FINDINGS: Lung bases: The heart is normal in size and without pericardial effusion. The lung bases are clear. Liver: The contrast-enhanced liver is enlarged, measuring 22 cm in length. The liver demonstrates dif fusely diminished attenuation consistent with severe hepatic steatosis. Fatty sparing is seen adjacen t to gallbladder fossa. There is no intrahepatic biliary ductal dilatation. No enhancing hepatic mass lesion is seen. Hepatic and portal vasculature: Hepatic arterial anatomy is conventional. The hepatic veins, portal v eins, superior mesenteric vein, and the splenic vein are patent. Gallbladder: Hyperdense material within the gallbladder likely represents vicariously excreted contra st. The gallbladder is otherwise normal in appearance. Spleen: The spleen is enlarged measuring 16.7 cm in length. Pancreas: The pancreas is moderately atrophic. There is a 2.8 x 2.5 x 1.9 cm hypervascular mass lesio n within or adjacent to the pancreatic head seen on image #162. This lesion shows arterial phase hype rvascularity. Additionally, there are 2 enlarged ancillary hyperemic peripancreatic lymph nodes seen on image #141 measuring 2.1 x 1.8 cm and on image #159 measuring 1.8 x 1.6 cm. The pancreatic duct is normal in caliber. Adrenal glands: Unremarkable. Kidneys: The contrast enhanced kidneys are normal in size and without hydronephrosis. The kidneys enh ance symmetrically. Abdominal vasculature: The abdominal aorta is normal in course and caliber. Bowel: Imaged portions of the small bowel and colon show no evidence of obstruction. The appendix is well-visualized and normal. Peritoneum: There is no intraperitoneal free air or abdominal ascites. There is a fat-containing umbi lical hernia. Lymphadenopathy: There are peripancreatic lymph nodes as above. No additional pathologically enlarged lymph nodes are seen in the abdomen or pelvis. Skeletal structures: No lytic or blastic lesions are seen. IMPRESSION: 1. Again seen is a 2.8 cm hypervascular mass lesion within or adjacent to the pancreatic head. A prim imelda pancreatic lesion such as a neuroendocrine tumor is favored. Tissue sampling is recommended. 2. There are 2 similar-appearing hypervascular perihepatic lymph nodes indicating jacob involvement. 3. No additional pathologically enlarged lymph nodes are identified in the abdomen or pelvis. 4. Hepatomegaly and hepatic steatosis. 5. Splenomegaly. 6. Additional findings as above. ACT 112: Negative or not required by law. Electronically signed by: Ludwin Palafox M.D. 02/27/2022 12:48 PM
--- NOTE | 2022-02-27 14:32 | Hospitalist Progress Note ---
Date of Service February 27, 2022 Assessment & Plan (1) Encephalopathy: Plan: Infectious etiology ruled out, with WNV still pending. Not continued on antiviral therapy or antibacterial therapy or steroids at this time. (2) Memory loss: Plan: -Imaging studies including CT and CTA of the head and neck are negative -MRI of the brain is negative for acute encephalitis, shows small retention cyst in the sinuses, no mass or stroke evidence. -elevated CRP= 1.45, LP with CSF of 6, Protein 45.5, negative for all viruses on biofire including HSV, enterovirus, CMV, VZV. [place] is pending. Gram sta in is negative for organisms. CSF culture pending-patient afebrile and no leukocytosis. -awaiting peripheral smear -Neurology consulted-EEG per neurology request - appreciate recs B12 slightly low. Checking MMA in am. Replacing thiamine empirically. (3) Pancreatic mass: Plan: CT of the chest abdomen pelvis without oral or IV contrast was performed given the significant weight loss. 2.9 cm soft tissue lesion in or adjacent to the pancreatic head may present an enlarged lymph node versus a primary pancreatic mass lesion. There are enlarged peripancreatic lymph nodes hepatomegaly with steatosis, splenomegaly and colonic diverticulosis. -DDX includes but not limited to lymphoma, islet cell tumor (neuroendocrine tumor), adenocarcinoma. - ? consider paraneoplastic syndrome to explain current symptoms -discussed case wtih GI radio division captain who is planning EUS with biopsy this week. Updated and her sister who were at bedside. (4) Obesity (BMI 30-39.9): Plan: - notes that the patient has been losing weight since September, purposely, within the past 2 months appetite seems to have decreased and patient continues to lose weight -BMI of 38.3 DVT PPx: - teds, scds CODE: Full code Dispo: From home, likely to remain in the hospital x 1-2 days until he can get the EUS with biopsy Nuvia Schwartz DO [facility] Hospitalist Admission and Anticipated Discharge Date Admission Date: February 26, 2022 Subjective 46-year-old man presents with short-term memory difficulty and possibly some difficulty with word finding along with decreased appetite and 70 pound weight loss. Lumbar puncture and infectious work-up in the ER last night was negative. Brain MRI is negative with no enhancing features and no evidence of stroke or mass The patient has persistent symptoms today and review of systems is limited because of this He will forget what was said every few minutes and ask again Disclosed to the and patient together when she was on the phone the fact that he had a possible pancreatic mass and a biopsy was needed Discussed the case with GI on-call who cannot perform endoscopic ultrasound until Monday. Discussed with the family that we would still keep him n.p.o. after midnight in the off chance he were able to go to procedure tomorrow morning. Patient denies any pain but is emotional and wanting to go home. Review of Systems Review of Systems: All systems reviewed negative except as indicated above. Physical Exam Physical Exam: CONSTITUTIONAL: WNWD, vitals as above, generally well- appearing, emotional but NAD EYES: EOMI bilaterally, pupils are round and equal bilaterally, normal conjunctivae, no scleral icterus, no fundoscopic abnormality (noted on 02/26 exam) ENT: external ear and nose normal, oropharynx clear NECK: trachea midline, normal cervical ROM (noted on 02/26 exam) RESPIRATORY: clear to auscultation bilaterally, no crackles, rales or wheezes, normal respiratory effort CARDIOVASCULAR: regular rate and rhythm, S1 and 2 heard without murmurs, gallops or rubs, no JVD, no peripheral edema CHEST: inspection of chest was normal GASTROINTESTINAL: soft, nontender, no guarding MUSCULOSKELETAL: strength 5/5 throughout, head is normocephalic and atraumatic SKIN: warm and dry NEUROLOGIC: CN 2-12 grossly intact, no sensory deficit, normal cognition, normal speech, no tremor PSYCHIATRIC: alert cooperative and oriented to person, place and time. Having difficulty remembering new information presented, cannot remember details of ER visit last night. Language intact. Results & Data Results & Data ([facility]) Vital Signs (Past 12 Hours) Vital Signs Temp Pulse Resp BP Pulse Ox O2 Del Method 02/27/22 08:09 36.8 C 70 16 124/74 96 Room Air Laboratory Results Short CBC 02/27/22 Range/Units 07:09 WBC 7.29 (4.8-10.8) K/ul Hgb 14.9 (14.0-18.0) g/dl Hct 42.6 (40.1-51.0) % Plt Count 187 (130-400) K/uL BMP 02/27/22 07:09 Sodium 137 Potassium 4.1 Chloride 104 Carbon Dioxide 25 BUN 12 Creatinine 1.05 Glucose 116 H Calcium 9.8 Liver Function 02/27/22 Range/Units 07:09 Total Bilirubin 1.1 H (0.2-1.0) mg/dl AST 29 (13-39) U/L ALT 42 (7-52) U/L Alkaline Phosphatase 54 (34-104) U/L Albumin 4.3 (3.4-5.0) gm/dl Diagnostic Findings Abdomen/Pelvis CT 02/26/22 19:40 CT SCAN OF THE CHEST, ABDOMEN, AND PELVIS WITHOUT IV CONTRAST CLINICAL HISTORY: Unintended weight loss. COMPARISON STUDY: Chest CT dated 01/01/2017. Abdominal CT dated 04/24/2008. TECHNIQUE: Unenhanced CT scan of the chest, abdomen, and pelvis was performed from the thoracic inlet to the proximal femora. Images are reviewed in the axial, sagittal, and coronal planes. IV contrast was not administered for this examination. Note that the examination was performed in significantly suboptimal fashion without oral and IV contrast. A dose lowering technique was utilized adhering to the principles of ALARA. CT DOSE: 2260.66 mGy.cm FINDINGS: CHEST: Thyroid: Imaged portions of the thyroid gland are normal in size and attenuation. Thoracic aorta: The thoracic aorta is normal in caliber and demonstrates standard 3-vessel arch anatomy. Heart: The heart is normal in size and without pericardial effusion. There are scattered coronary artery calcifications. Lungs and pleural spaces: The lungs and pleural spaces are clear noting dependent atelectasis. The trachea and central airways are patent. Mediastinum: There is no mediastinal lymphadenopathy. Thuy: Not well assessed without IV contrast. Axillae: There is no axillary lymphadenopathy. Bony thorax: No lytic or blastic lesions are identified. ABDOMEN AND PELVIS: Liver: The unenhanced liver is enlarged, measuring 22 cm in length. The liver demonstrates diffusely diminished attenuation consistent with severe hepatic steatosis. Fatty sparing is seen adjacent to gallbladder fossa. There is no intrahepatic biliary ductal dilatation. Gallbladder: Hyperdense material within the gallbladder likely represents vicariously excreted contrast. The gallbladder is otherwise normal in appearance. Spleen: The spleen is enlarged measuring 16.7 cm in length. Pancreas: The pancreas is moderately atrophic. There is the suggestion of a 2.9 x 2.2 cm soft tissue lesion within or adjacent to the pancreatic head on image #183. Additionally, there are least 2 enlarged peripancreatic lymph nodes seen on image #161 measuring 2.1 x 1.8 cm and on image #177 measuring 1.8 x 1.6 cm. The pancreatic duct is normal in caliber. Adrenal glands: Unremarkable. Kidneys: The unenhanced kidneys are normal in size and without hydronephrosis. Excreted IV contrast fills the renal collecting systems and ureters. This degrades assessment for renal calculi. There is no evidence of contour deforming mass lesion. Abdominal vasculature: The abdominal aorta is normal in course and caliber. Bowel: There is mild to moderate colonic diverticulosis without CT evidence of acute diverticulitis. No bowel obstruction is seen. The appendix is well- visualized and normal. Peritoneum: There is no intraperitoneal free air or abdominal ascites. There is a fat-containing umbilical hernia. Lymphadenopathy: As noted above there are enlarged peripancreatic lymph nodes. No additional pathologically enlarged lymph nodes are seen in the abdomen or pelvis. Pelvic viscera: Excreted IV contrast fills the bladder. The bladder is otherwise normal as visualized. The prostate and seminal vesicles are normal as imaged. Skeletal structures: No lytic or blastic lesions are seen. IMPRESSION: 1. Significantly suboptimal examination without oral and IV contrast. 2. There is a 2.9 cm soft tissue lesion within or adjacent to the pancreatic head. This could represent enlarged lymph node versus a primary pancreatic mass lesion. GI follow-up is recommended for possible endoscopic ultrasound with biopsy. 3. There are enlarged peripancreatic lymph nodes. 4. No additional pathologically enlarged lymph nodes are identified in the chest, abdomen, or pelvis. 5. Hepatomegaly and severe steatosis. 6. Splenomegaly. 7. The lungs are clear. 8. Colonic diverticulosis without CT evidence of acute diverticulitis. 9. Additional findings as above. ACT 112: Negative or not required by law. Electronically signed by: Ludwin Palafox M.D. 02/27/2022 7:[address] 02/26/22 19:40 CT SCAN OF THE CHEST, ABDOMEN, AND PELVIS WITHOUT IV CONTRAST CLINICAL HISTORY: Unintended weight loss. COMPARISON STUDY: Chest CT dated 01/01/2017. Abdominal CT dated 04/24/2008. TECHNIQUE: Unenhanced CT scan of the chest, abdomen, and pelvis was performed from the thoracic inlet to the proximal femora. Images are reviewed in the axial, sagittal, and coronal planes. IV contrast was not administered for this examination. Note that the examination was performed in significantly suboptimal fashion without oral and IV contrast. A dose lowering technique was utilized adhering to the principles of ALARA. CT DOSE: 2260.66 mGy.cm FINDINGS: CHEST: Thyroid: Imaged portions of the thyroid gland are normal in size and attenuation. Thoracic aorta: The thoracic aorta is normal in caliber and demonstrates standard 3-vessel arch anatomy. Heart: The heart is normal in size and without pericardial effusion. There are scattered coronary artery calcifications. Lungs and pleural spaces: The lungs and pleural spaces are clear noting dependent atelectasis. The trachea and central airways are patent. Mediastinum: There is no mediastinal lymphadenopathy. Thuy: Not well assessed without IV contrast. Axillae: There is no axillary lymphadenopathy. Bony thorax: No lytic or blastic lesions are identified. ABDOMEN AND PELVIS: Liver: The unenhanced liver is enlarged, measuring 22 cm in length. The liver demonstrates diffusely diminished attenuation consistent with severe hepatic steatosis. Fatty sparing is seen adjacent to gallbladder fossa. There is no intrahepatic biliary ductal dilatation. Gallbladder: Hyperdense material within the gallbladder likely represents vicariously excreted contrast. The gallbladder is otherwise normal in appearance. Spleen: The spleen is enlarged measuring 16.7 cm in length. Pancreas: The pancreas is moderately atrophic. There is the suggestion of a 2.9 x 2.2 cm soft tissue lesion within or adjacent to the pancreatic head on image #183. Additionally, there are least 2 enlarged peripancreatic lymph nodes seen on image #161 measuring 2.1 x 1.8 cm and on image #177 measuring 1.8 x 1.6 cm. The pancreatic duct is normal in caliber. Adrenal glands: Unremarkable. Kidneys: The unenhanced kidneys are normal in size and without hydronephrosis. Excreted IV contrast fills the renal collecting systems and ureters. This d egrades assessment for renal calculi. There is no evidence of contour deforming mass lesion. Abdominal vasculature: The abdominal aorta is normal in course and caliber. Bowel: There is mild to moderate colonic diverticulosis without CT evidence of acute diverticulitis. No bowel obstruction is seen. The appendix is well- visualized and normal. Peritoneum: There is no intraperitoneal free air or abdominal ascites. There is a fat-containing umbilical hernia. Lymphadenopathy: As noted above there are enlarged peripancreatic lymph nodes. No additional pathologically enlarged lymph nodes are seen in the abdomen or pelvis. Pelvic viscera: Excreted IV contrast fills the bladder. The bladder is otherwise normal as visualized. The prostate and seminal vesicles are normal as imaged. Skeletal structures: No lytic or blastic lesions are seen. IMPRESSION: 1. Significantly suboptimal examination without oral and IV contrast. 2. There is a 2.9 cm soft tissue lesion within or adjacent to the pancreatic head. This could represent enlarged lymph node versus a primary pancreatic mass lesion. GI follow-up is recommended for possible endoscopic ultrasound with biopsy. 3. There are enlarged peripancreatic lymph nodes. 4. No additional pathologically enlarged lymph nodes are identified in the chest, abdomen, or pelvis. 5. Hepatomegaly and severe steatosis. 6. Splenomegaly. 7. The lungs are clear. 8. Colonic diverticulosis without CT evidence of acute diverticulitis. 9. Additional findings as above. ACT 112: Negative or not required by law. Electronically signed by: Ludwin Palafox M.D. 02/27/2022 7:46 AM Liver Ultrasound 02/26/22 19:54 ULTRASOUND RIGHT UPPER QUADRANT ABDOMEN CLINICAL HISTORY: Elevated hepatic transaminases. COMPARISON STUDY: Abdominal CT dated 02/26/2022 TECHNIQUE: Real-time, grayscale, and color flow sonography of the right upper quadrant of the abdomen was performed. Images are reviewed in the transverse and longitudinal planes. FINDINGS: Liver: The liver is mildly enlarged and demonstrates heterogeneously increased echotexture indicating severe steatosis. Note that this degrades acoustic penetration of the liver. Fatty sparing is seen adjacent to gallbladder fossa. There is no intrahepatic biliary ductal dilatation. The main portal vein is patent. Gallbladder: The gallbladder is normal in appearance. No gallstones are identified. There is no gallbladder wall thickening or pericholecystic fluid. A sonographic Fuentes's sign is reportedly absent. The common bile duct measures up to 0.4 cm in diameter. Pancreas: Nonvisualized due to overlying bowel gas. Right kidney: Survey images of the right kidney demonstrate normal size and echotexture. There is no hydronephrosis. Ascites: None. IMPRESSION: 1. No acute sonographic abnormality is seen in the right upper quadrant. No gallstones are identified. 2. Hepatomegaly and severe hepatic steatosis. ACT 112: Negative or not required by law. Electronically signed by: Ludwin Palafox M.D. 02/27/2022 6:[address] 02/27/22 11:12 CT SCAN OF THE ABDOMEN COMBO PANCREAS PROTOCOL CLINICAL HISTORY: Pancreatic mass/lymph nodes. COMPARISON STUDY: Unenhanced abdominal CT dated 02/26/2022. TECHNIQUE: Before and following the IV administration of 95 cc of Optiray 320, CT scan of the abdomen and pelvis is performed from the lung bases to the pelvic inlet using the pancreas protocol. Images are reviewed in the axial, sagittal, and coronal planes. IV contrast was administered without complication. A dose lowering technique was utilized adhering to the principles of ALARA. CT DOSE: 1926.81 mGycm FINDINGS: Lung bases: The heart is normal in size and without pericardial effusion. The lung bases are clear. Liver: The contrast-enhanced liver is enlarged, measuring 22 cm in length. The liver demonstrates diffusely diminished attenuation consistent with severe hepatic steatosis. Fatty sparing is seen adjacent to gallbladder fossa. There is no intrahepatic biliary ductal dilatation. No enhancing hepatic mass lesion is seen. Hepatic and portal vasculature: Hepatic arterial anatomy is conventional. The hepatic veins, portal veins, superior mesenteric vein, and the splenic vein are patent. Gallbladder: Hyperdense material within the gallbladder likely represents vicariously excreted contrast. The gallbladder is otherwise normal in appearance. Spleen: The spleen is enlarged measuring 16.7 cm in length. Pancreas: The pancreas is moderately atrophic. There is a 2.8 x 2.5 x 1.9 cm hypervascular mass lesion within or adjacent to the pancreatic head seen on image #162. This lesion shows arterial phase hypervascularity. Additionally, there are 2 enlarged ancillary hyperemic peripancreatic lymph nodes seen on image #141 measuring 2.1 x 1.8 cm and on image #159 measuring 1.8 x 1.6 cm. The pancreatic duct is normal in caliber. Adrenal glands: Unremarkable. Kidneys: The contrast enhanced kidneys are normal in size and without hydronephrosis. The kidneys enhance symmetrically. Abdominal vasculature: The abdominal aorta is normal in course and caliber. Bowel: Imaged portions of the small bowel and colon show no evidence of obstruction. The appendix is well-visualized and normal. Peritoneum: There is no intraperitoneal free air or abdominal ascites. There is a fat-containing umbilical hernia. Lymphadenopathy: There are peripancreatic lymph nodes as above. No additional pathologically enlarged lymph nodes are seen in the abdomen or pelvis. Skeletal structures: No lytic or blastic lesions are seen. IMPRESSION: 1. Again seen is a 2.8 cm hypervascular mass lesion within or adjacent to the pancreatic head. A primary pancreatic lesion such as a neuroendocrine tumor is favored. Tissue sampling is recommended. 2. There are 2 similar-appearing hypervascular perihepatic lymph nodes indicating jacob involvement. 3. No additional pathologically enlarged lymph nodes are identified in the abdomen or pelvis. 4. Hepatomegaly and hepatic steatosis. 5. Splenomegaly. 6. Additional findings as above. ACT 112: Negative or not required by law. Electronically signed by: Ludwin Palafox M.D. 02/27/2022 12:48 PM Medications Administered Current Inpatient Medications Acetaminophen (Acetaminophen 325 Mg Tab) 650 mg PO Q4H PRN PRN Reason: Moderate Pain Stop: 03/28/22 20:58 Enoxaparin Sodium (Enoxaparin Inj 40 Mg/0.4 Ml Syr) 40 mg SQ Q12H [facility] Stop: 03/28/22 20:59 Last Admin: 02/27/22 09:55 Dose: 40 mg Thiamine HCl 100 mg/ Syringe 10 mls @ 2 mls/min IV QAM [facility] Stop: 03/29/22 08:59 Last Admin: 02/27/22 09:55 Dose: 2 mls/min Ondansetron HCl (Ondansetron Inj 2 Mg/Ml 2 Ml Vial) 4 mg IV Q4H PRN PRN Reason: Nausea And Vomiting Stop: 03/28/22 20:58
--- NOTE | 2022-02-27 14:37 | Consultation Report ---
DATE OF CONSULT: 02/27/2022. REASON FOR CONSULTATION: Cognitive dysfunction. HISTORY OF PRESENT ILLNESS: The patient is a 46-year-old right-handed male who has previously been well. In 11/2021, the family had an illness, but tested negative for COVID. Since that time, his has noted some difficulty with short-term memory, which has seemingly progressed over the last 1 week. He tries to compensate by making lists. 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 His got a text message about one of his clients and the patient did not recall the name of the client, albeit it was a new client. He has been a lot more quiet than he had been. No inappropriate behavior. No change in personality. No hallucinations He has lost at least 70 pounds since the first of the year. He initially was trying to lose weight, but now has no appetite and eats very little. Does not tend to eat breakfast or lunch and will eat a small evening meal. He has otherwise been well. He has not had any headaches, fevers, chills, sweats. He has not had any rashes, tick bites. He has not had any transplants. He does not take any medications chronically. He does not smoke and rarely drinks alcohol. 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 There is no family history of early cognitive dysfunction. There have been no seizures. There has been no focal neurologic deficit, one-sided weakness, numbness, tremor, or change in gait. His MRI of the brain is grossly normal performed with and without contrast. I have reviewed those images. CTA of the head and neck showed no significant abnormalities. Lumbar puncture showed a white count of 6, CSF was clear and colorless. Differential does not appear to have been performed. Total protein was 45.5. CSF for CMV, fungal enterovirus, E. coli, H flu, HSV 1 and 2, HHV-6, Listeria, Neisseria, Parechovirus, Strep agalactiae pneumonia and VSV were unremarkable. CSF West [place] is pending. Micro CSF and blood cultures are pending. No pathology. A cardiovascular EKG shows a low QRS normal sinus rhythm. No significant change noted since 12/2016. CT of the chest, abdomen and pelvis show significantly suboptimal without oral and IV contrast, 2.9 cm soft tissue lesion width or adjacent to the pancreatic head. This could represent an enlarged lymph node versus a primary pancreatic mass lesion. There are enlarged peripancreatic lymph nodes, hepatomegaly and severe steatosis, splenomegaly, colonic diverticulosis. The lungs are clear. Liver ultrasound shows no sonographic abnormality in the right upper quadrant. No gallstones, hepatomegaly and severe hepatic steatosis. Pancreas CT 2.8 hypervascular mass lesion within or adjacent to the pancreatic head. A primary pancreatic lesion such as a neuroendocrine tumor is favored two similarly appearing hypervascular perihepatic lymph nodes indicating jacob involvement. No additional pathologic enlargement of the lymph nodes are noted. PAST MEDICAL HISTORY: Foot fracture, obesity. PAST SURGICAL HISTORY: Tonsillectomy. FAMILY HISTORY: No family history of progressive neurologic disorder. Father's medical history is unknown. Mother, diabetes, heart disease, COPD, nonsmoker. SOCIAL HISTORY: The patient does not drink alcohol. MEDICATIONS: No home meds. ALLERGIES: No allergies. PHYSICAL EXAMINATION: The patient is awake and alert. He is oriented x3, but often looks to his for some confirmation. There is no right/left confusion and normal repetition, naming, and 3-step commands. Memory is 3/3 in 3 min. Mentation is mildly slow. When I asked him about his children. He has to think significantly about their ages, names and sports that they play. The patient frequently repeats himself, stating multiple times that he would like to go home and have outpatient testing. No hallucinations were noted. He is not operating on any external stimuli. His head is normocephalic, atraumatic. His neck is supple. There are no carotid bruits, no heart murmurs. Heart is regular rate and rhythm. Abdomen is soft, nontender. Pulses are palpable in the feet. No calf swelling or tenderness is noted. Pupils are equal, round and reactive to light. I could not reliably visualize the optic nerves. Normal younger, motility. No nystagmus. No absent clonus. Normal facial symmetry. No resting tremor or cogwheel rigidity. There is full strength, no drift. Normal rapid alternating movements. [id number], [id number] are normal. Reflexes symmetric, mildly brisk in the lowers. Toes are downgoing. Sensation intact to vibration in the fingers and toes, symmetric to light touch. Gait is unremarkable. IMPRESSION: This patient has had a subacute encephalopathy with difficulty with short-term memory, possibly some difficulty with word finding. There does not appear to be any significant executive dysfunction, psychiatric accompaniments, seizure, headache, rash. sed rate is normal.The CT showing a pancreatic mass could suggest a paraneoplastic etiology. PLAN: EEG, further characterization of the abdominal mass. No convincing evidence of vasculitis. There is no evidence of hypothyroidism or hyperthyroidism. We will check thyroid antibodies. In terms of neurodegenerative processes, would be of the young age and rapid progression for Alzheimer's dementia. CJD is within the differential. EEG will likely be helpful. Additional antibodies could include an BJ, ANCA, cryoglobulins. Hepatitis B, C, complement level, anticardiolipin antibody, copper level, ceruloplasmin, HIV testing. B12 was borderline low. We will check a methylmalonic acid, thiamine, supplement with thiamine. Additional workup will depend on the results of the aforementioned and as to whether or not the pathology is associated with a paraneoplastic syndrome. Job ID: [id number] [facility]OSPITALMatilda
[2022-02-28 07:39] LABS: Hematocrit (blood only) 41.8 % (40.1-51.0); Hemoglobin 14.5 g/dl (14.0-18.0); Mean Corpuscular Hgb Conc 34.7 g/dL (32.0-36.0); Mean Corpuscular Volume 83.6 fL (80.0-100.0); Mean Platelet Volume 10.7 fL (9.4-12.4); Platelet Count 174 K/uL (130-400); White Blood Count 5.76 K/ul (4.8-10.8)
[2022-02-28 07:40] LABS: Estimated Average Glucose 123 mg/dl; Hemoglobin A1C 5.9 % (4.5-5.6)
[2022-02-28 08:02] LABS: BUN Creatinine Ratio 16.1 (10-20); Calcium 9.2 mg/dl (8.5-10.1); Creatinine Clr Calc Pharmacy 105.2 ml/min; Est GFR (African American) 89.5 ml/min; Est GFR (Non-African American) 77.3 ml/min; Potassium 3.7 mmol/L (3.5-5.1)
--- NOTE | 2022-02-28 10:33 | Gastrointestinal Consultation ---
Date of Consultation February 28, 2022 Assessment & Plan (1) Pancreatic mass: 46 year old male admitted with confusion and forgetfulness, imaging with a 2.8 cm hypervascular mass lesion of the pancreatic head. Can have diet today NPO after midnight for EUS Monday Thank you for allowing us to participate in the care of this patient. Please call with any acute changes, questions or concerns. Please see addendum below with additional recommendation from my supervising physician. Supervising Physician Co-Signing Physician Notes I have seen and examined the patient with CONNOR Berry whose note reflects our findings and plan. Patient will have EUS tomorrow. History of Present Illness Reason for Consultation: pancreatic lesion Requesting Physician: Efren Attending Physician: Nuvia Schwartz DO History of Present Illness 46 year old male without past medical history who presented to [facility] for evaluation of confusion, forgetfulness. GI was asked to evaluate for pancreatic lesion. Pt was seen and evaluated, chart reviewed. at bedside who aids in history. Suggests from a GI standpoint he had been doing okay. Denies abd pain, nausea, vomiting. No change in bowel functions. No report of black or bloody stools. He has had report of decreased appetite. He has lost about 40 lbs but noted he was working on weight loss. Over the last 1-2 months he has expierenced confusion, forgetfulness. No fever, chills, CP, SOB No ETOH abuse history No tobaccu use history No family history of GI malignancies LFTs normal Lipase normal Pancreas CT 2021: Again seen is a 2.8 cm hypervascular mass lesion within or adjacent to the pancreatic head. A primary pancreatic lesion such as a neuroendocrine tumor is favored. Tissue sampling is recommended.. There are 2 similar-appearing hypervascular perihepatic lymph nodes indicating jacob involvement.No additional pathologically enlarged lymph nodes are identified in the abdomen or pelvis. Hepatomegaly and hepatic steatosis.Splenomegaly. ABD US 2021: No acute sonographic abnormality is seen in the right upper quadrant. No gallstones are identified. Hepatomegaly and severe hepatic steatosis. CTAP 2021: There is a 2.9 cm soft tissue lesion within or adjacent to the pancreatic head. This could represent enlarged lymph node versus a primary pancreatic mass lesion. GI follow-up is recommended for possible endoscopic ultrasound with biopsy.There are enlarged peripancreatic lymph nodes. No additional pathologically enlarged lymph nodes are identified in the chest, abdomen, or pelvis. Hepatomegaly and severe steatosis. Splenomegaly.The lungs are clear. Colonic diverticulosis without CT evidence of acute diverticulitis. Allergies Allergy/AdvReac Type Severity Reaction Status Date / Time No Known Allergies Allergy Unverified 02/26/22 13:43 Home Medications Medication Instructions Recorded Confirmed Type No Known Home Medications 02/26/22 02/26/22 History Patient History Medical History (Updated 02/27/22 @ 17:38 by Nuvia Schwartz, ) Foot fracture, left Obesity (BMI 30-39.9) Surgical History (Updated 02/26/22 @ 18:02 by Iliana Morgan PA-C) Hx of tonsillectomy Family History (Updated 02/26/22 @ 18:06 by Iliana Morgan PA-C) Mother Diabetes Heart disease COPD (chronic obstructive pulmonary disease) Social History (Updated 02/26/22 @ 18:02 by Iliana Morgan PA-C) Smoking Status: Never smoker Second Hand Exposure: Yes (mother when pt was a child); Do You Dip or Chew Tobacco: No; Tobacco Cessation Education Requested by Patient: No Hx Alcohol Use: No Hx Substance Use: No Preferred Language: Zambian Communication Ability: Effective Recovery Agent Required: No Beliefs That Will Affect Care: None Current Living Situation: Spouse Other Information That Helps Us Care for You: No Feels Safe at Home: Yes Safety Concerns: Feels Safe At This Time Assistive Devices: None Review of Systems Review of Systems: All systems reviewed & are unremarkable except as noted in HPI & below Physical Exam Constitutional: WD/WN, vitals as above Respiratory: normal respiratory effort, lungs clear to auscultation Cardiovascular: Rate/Rhythm: regular rate and regular rhythm Gastrointestinal (Abdomen): normal bowel sounds, soft, nontender, no hepatosplenomegaly Skin: no rashes, warm and dry Results & Data ([facility]) Vital Signs (Past 12 Hours) Vital Signs Temp Pulse Resp BP Pulse Ox O2 Del Method 02/28/22 08:39 36.7 C 69 16 130/73 95 02/28/22 08:23 Room Air 02/27/22 22:44 36.6 C 61 18 130/80 96 Room Air Laboratory Results 02/28/22 02/28/22 02/28/22 Range/Units 08:06 07:19 07:19 WBC 5.76 (4.8-10.8) K/ul RBC 5.00 (4.63-6.08) M/uL Hgb 14.5 (14.0-18.0) g/dl Hct 41.8 (40.1-51.0) % MCV 83.6 (80.0-100.0) fL MCH 29.0 (25.0-34.0) pg MCHC 34.7 (32.0-36.0) g/dL RDW Std Deviation 39.0 (36.4-46.3) fL RDW Coeff of Aurelio 13.0 (11.5-14.5) % Plt Count 174 (130-400) K/uL MPV 10.7 (9.4-12.4) fL Sodium 138 (136-145) mmol/L Potassium 3.7 (3.5-5.1) mmol/L Chloride 105 (98-107) mmol/L Carbon Dioxide 26 (21-32) mmol/L Anion Gap 7 (3-11) BUN 18 (6-23) mg/dl Creatinine 1.12 (0.6-1.4) mg/dl Est Cr Clr Drug Dosing 105.2 ml/min Est GFR ( Amer) 89.5 ml/min Est GFR (Non-Af Amer) 77.3 ml/min BUN/Creatinine Ratio 16.1 (10-20) Glucose 105 H (70-99(Fasting)) mg/dl Estimat Average Glucose mg/dl Hemoglobin A1c (4.5-5.6) % Calcium 9.2 (8.5-10.1) mg/dl Ceruloplasmin Methylmalonic Acid Cryoglobulin Pending Cryoglobulin Cryocrit Pending BJ Screen Anti-Proteinase 3 Anti-Myeloperoxidase ANCA Complement C3 Complement C4 Tot Complement (CH50) Hepatitis A IgM Ab Hep Bs Antigen Hep Bs Ag Confirmation Hep B Core IgM Ab Hepatitis C Ab (EIA) Hep C Ab Signal/Cutoff 02/28/22 02/27/22 Range/Units 07:19 07:09 WBC (4.8-10.8) K/ul RBC (4.63-6.08) M/uL Hgb (14.0-18.0) g/dl Hct (40.1-51.0) % MCV (80.0-100.0) fL MCH (25.0-34.0) pg MCHC (32.0-36.0) g/dL RDW Std Deviation (36.4-46.3) fL RDW Coeff of Aurelio (11.5-14.5) % Plt Count (130-400) K/uL MPV (9.4-12.4) fL Sodium (136-145) mmol/L Potassium (3.5-5.1) mmol/L Chloride (98-107) mmol/L Carbon Dioxide (21-32) mmol/L Anion Gap (3-11) BUN (6-23) mg/dl Creatinine (0.6-1.4) mg/dl Est Cr Clr Drug Dosing ml/min Est GFR ( Amer) ml/min Est GFR (Non-Af Amer) ml/min BUN/Creatinine Ratio (10-20) Glucose (70-99(Fasting)) mg/dl Estimat Average Glucose 123 mg/dl Hemoglobin A1c 5.9 H (4.5-5.6) % Calcium (8.5-10.1) mg/dl Ceruloplasmin Pending Methylmalonic Acid Pending Cryoglobulin Cancelled Cryoglobulin Cryocrit Cancelled BJ Screen Pending Anti-Proteinase 3 Pending Anti-Myeloperoxidase Pending ANCA Pending Complement C3 Pending Complement C4 Pending Tot Complement (CH50) Pending Hepatitis A IgM Ab Pending Hep Bs Antigen Pending Hep Bs Ag Confirmation Pending Hep B Core IgM Ab Pending Hepatitis C Ab (EIA) Pending Hep C Ab Signal/Cutoff Pending
[2022-02-28] MEDS: ENOXAPARIN INJ 40 MG/0.4 ML SYR SQ SCH ×2 (11:02→20:40)
[2022-02-28] MEDS: THIAMINE HCL 100 MG in SYRINGE 9 ML IV SCH (11:02)
--- NOTE | 2022-02-28 11:08 | Hospitalist Progress Note ---
Date of Service February 28, 2022 Assessment & Plan (1) Encephalopathy: Plan: Infectious etiology ruled out, with WNV still pending. Not continued on antiviral therapy or antibacterial therapy or steroids at this time. Formal infectious Disease consult on Monday. (2) Memory loss: Plan: -Imaging studies including CT and CTA of the head and neck are negative -MRI of the brain is negative for acute encephalitis, shows small retention cyst in the sinuses, no mass or stroke evidence. -elevated CRP= 1.45, LP with CSF of 6, Protein 45.5, negative for all viruses on biofire including HSV, enterovirus, CMV, VZV. [place] is pending. Gram stain is negative for organisms. CSF culture pending-patient afebrile and no leukocytosis. -awaiting peripheral smear -Neurology consulted-EEG per neurology request - appreciate recs B12 slightly low. MMA pending. Replacing thiamine empirically. -concern for paraneoplastic syndrome as a cause (3) Pancreatic mass: Plan: CT of the chest abdomen pelvis without oral or IV contrast was performed given the significant weight loss. 2.9 cm soft tissue lesion in or adjacent to the pancreatic head may present an enlarged lymph node versus a primary pancreatic mass lesion. There are enlarged peripancreatic lymph nodes hepatomegaly with steatosis, splenomegaly and colonic diverticulosis. -DDX includes but not limited to lymphoma, islet cell tumor (neuroendocrine tumor), adenocarcinoma. - ? consider paraneoplastic syndrome to explain current symptoms -discussed case wt GI retention specialist who is planning EUS with biopsy . Updated who is at bedside (4) Obesity (BMI 30-39.9): Plan: - notes that the patient has been losing weight since September, purposely, within the past 2 months appetite seems to have decreased and patient continues to lose weight -BMI of 38.3 DVT PPx: - teds, scds CODE: Full code Dispo: From home, likely to remain in the hospital x 1-2 days until he can get the EUS with biopsy Nuvia Schwartz DO [facility] Hospitalist Admission and Anticipated Discharge Date Admission Date: February 26, 2022 Subjective 46-year-old man presents with short-term memory difficulty and possibly some difficulty with word finding along with decreased appetite and 70 pound weight loss. Patient doing about the same today Denies any abdominal pain Tolerating p.o. Afebrile overnight Continues to remain confused asking why he is here today and with the plan as. is at bedside and has spoken with GI Patient and have spoken with Dr. Cruz who is a family friend which helped their understanding of the situation Current plan is to remain inpatient for EUS with biopsy tomorrow morning. Review of Systems Review of Systems: All systems reviewed negative except as indicated above Physical Exam Physical Exam: CONSTITUTIONAL: WNWD, vitals as above, generally well- appearing, NAD EYES: pupils are round and equal bilaterally, normal conjunctivae, no scleral icterus ENT: external ear and nose normal, MMM NECK: trachea midline RESPIRATORY: clear to auscultation bilaterally, no crackles, rales or wheezes, normal respiratory effort CARDIOVASCULAR: regular rate and rhythm, S1 and 2 heard without murmurs, gallops or rubs, no JVD, no peripheral edema CHEST: inspection of chest was normal GASTROINTESTINAL: soft, nontender, no guarding MUSCULOSKELETAL: strength 5/5 throughout, head is normocephalic and atraumatic SKIN: warm and dry NEUROLOGIC: CN 2-12 grossly intact, no sensory deficit, normal cognition, normal speech, no tremor PSYCHIATRIC: alert cooperative and oriented to person, place and time. Having difficulty remembering new information presented, cannot remember details from just 5 minutes prior. Language intact. Results & Data Results & Data ([facility]) Vital Signs (Past 12 Hours) Vital Signs Temp Pulse Resp BP Pulse Ox O2 Del Method 02/28/22 08:39 36.7 C 69 16 130/73 95 02/28/22 08:23 Room Air Laboratory Results Short CBC 02/28/22 Range/Units 07:19 WBC 5.76 (4.8-10.8) K/ul Hgb 14.5 (14.0-18.0) g/dl Hct 41.8 (40.1-51.0) % Plt Count 174 (130-400) K/uL BMP 02/28/22 07:19 Sodium 138 Potassium 3.7 Chloride 105 Carbon Dioxide 26 BUN 18 Creatinine 1.12 Glucose 105 H Calcium 9.2 Medications Administered Current Inpatient Medications Acetaminophen (Acetaminophen 325 Mg Tab) 650 mg PO Q4H PRN PRN Reason: Moderate Pain Stop: 03/28/22 20:58 Enoxaparin Sodium (Enoxaparin Inj 40 Mg/0.4 Ml Syr) 40 mg SQ Q12H MICHOACANO Stop: 03/28/22 20:59 Last Admin: 02/28/22 11:02 Dose: 40 mg Thiamine HCl 100 mg/ Syringe 10 mls @ 2 mls/min IV QAM [facility] Stop: 03/29/22 08:59 Last Admin: 02/28/22 11:02 Dose: 2 mls/min Ondansetron HCl (Ondansetron Inj 2 Mg/Ml 2 Ml Vial) 4 mg IV Q4H PRN PRN Reason: Nausea And Vomiting Stop: 03/28/22 20:58
--- NOTE | 2022-02-28 11:58 | Neurology Progress Note ---
Date of Service February 28, 2022 Assessment & Plan (1) Encephalopathy: Plan: 1. LP - all labs not resulted 2. BJ, ANCA, cryoglobulins. Hepatitis B, C, complement level, anticardiolipin antibody, copper level, ceruloplasmin, HIV testing. B12 was borderline low. We will check a methylmalonic acid, thiamine, supplement with thiamine. Additional workup will depend on the results of the aforementioned and as to whether or not the pathology is associated with a paraneoplastic syndrome. 3. PT/OT for discharage needs 4. will need supervision with discharge 5. once biopsy is done better understanding of direction of care. (2) Pancreatic mass: Plan: 1. plans for biopsy tomorrow Admission and Anticipated Discharge Date Admission Date: February 26, 2022 Supervising Physician Co-Signing Physician Notes I have seen and discussed above patient with Dr Sindy De La Rosa, neurology. Patient seen and discussed with Sindy Madera. We reviewed his MRI of the brain with Dr. Bustamante. We have noted that there was increased FLAIR signal in the left temporal lobe somewhat diffusely. He felt that this was likely given that it was nonenhancing related to fat and of not and not of any significance. He did suggest that perhaps a repeat MRI of the brain should be performed in 1 month. Patient CSF cultures are negative to date. He is to have a pancreatic biopsy tomorrow the patient continues to have difficulty with short-term memory repeatedly asks the same question regarding procedures what will be done etc. impression encephalopathy very likely this is related to the pancreatic mass. If pancreatic mass biopsies is negative and it is not thought that there is an underlying malignancy will need to do further neurologic testing. In addition to the labs that are already pending would likely repeat lumbar puncture and do more extensive testing including 14 3 and 3 protein and and real-time quite conversant compression as well as add Charly spoke talo total/tattle a beta 42. Additionally would consider depending on the results of the NMDA and thyroid antibodies a 5-day course of IV Solu-Medrol. If the etiology of his symptoms remain unclear I would recommend a referral to a tertiary care center. He is being discharged tomorrow after his biopsy have no objection to that. Sindy De La Rosa MD Subjective in November 2021 his family had an illness, but tested negative for COVID. Since then his has noted some difficulty with short-term memory, which progressed over the last week.He tries to compensate by making lists. 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 His got a text message about one of his clients and he did not recall the name of the client. He has been a lot more quiet than he had been but no change in personality, no hallucinations. He has lost at least 70 pounds since the first of the year. He was trying to lose weight, but now has no appetite and eats very little. He dose not eat breakfast or lunch and will eat a small evening meal. He has not had any headaches, fevers, chills, sweats. He does not take any medications chronically. He does not smoke and rarely drinks alcohol. 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 There is no family history of early cognitive dysfunction or seizures. His MRI of the brain is grossly normal performed with and without contrast.CSF and blood cultures are pending. He has a 2.9 cm soft tissue lesion width or adjacent to the pancreatic head. This could represent an enlarged lymph node versus a primary pancreatic mass lesion. There are enlarged peripancreatic lymph nodes, hepatomegaly and severe steatosis, splenomegaly, co lonic diverticulosis. He has been up to the bathroom with no issues, He is anxious to go home. he repeats questions about what is wrong with him and gets weepy. Review of Systems Review of Systems: Unobtainable due to cognitive status Physical Exam Physical Exam: Physical Exam: Constitutional: appearance nourished, healthy and normal Ears, Nose, Mouth and Throat: mucous membranes moist, no injection and skin normal, eyes normal Cardiovascular: normal S-1 and S-2 and regular rate and rhythm Respiratory: clear to auscultation (CTA) and no rales, ronchi or wheeze Musculoskeletal: no peripheral edema and good distal pulses Skin: no stigmata of neurocutaneous disease noted and normal and intact Eyes: extraocular muscles intact (EOMI) and pupils equal, round and reactive to light (PERRL) NEUROLOGIC EXAMINATION: Mental status: Alert and interactive Oriented [facility] not to day, knows 14 of February last holiday, Biden president with choices Oriented to person Speech fluent with no evidence of aphasia Cranial Nerves smile eye brow raise symmetric Sensory: cool to touch Coordination: finger to nose Gait/Stance: Posture sitting up in bed Motor: Negative for pronator drift of out stretched arms with eyes closed. Strength: hand lead sales consultant biceps triceps 5/5 bilaterally hip flex 5/5, plantar flex ext 5/5 bilaterally Results & Data ([facility]) Vital Signs (Past 12 Hours) Vital Signs Temp Pulse Resp BP Pulse Ox O2 Del Method 02/28/22 08:39 36.7 C 69 16 130/73 95 02/28/22 08:23 Room Air Laboratory Results Abnormal lab results 02/27/22 02/28/22 Range/Units 07:09 07:19 Glucose 105 H (70-99(Fasting)) mg/dl Hemoglobin A1c 5.9 H (4.5-5.6) % Diagnostic Findings CT pancreas-Again seen is a 2.8 cm hypervascular mass lesion within or adjacent to the pancreatic head. A primary pancreatic lesion such as a neuroendocrine tumor is favored. Tissue sampling is recommended. There are 2 similar-appearing hypervascular perihepatic lymph nodes indicating jacob involvement. No additional pathologically enlarged lymph nodes are identified in the abdomen or pelvis. Hepatomegaly and hepatic steatosis. Splenomegaly.
--- NOTE | 2022-02-28 12:45 | Electroencephalogram ---
EEG Procedure Note Date of Service February 28, 2022 Start / End Times Start Time: 10:08 End Time: 10:28 Referring Physician Sindy De La Rosa MD History subacute confusion with documentation of pancreatic mass lesion and normal mri Home Medication List Medication Instructions Recorded Confirmed Type No Known Home Medications 02/26/22 02/26/22 History Inpatient Medication List Enoxaparin Sodium (Enoxaparin Inj 40 Mg/0.4 Ml Syr) 40 mg SQ Q12H MICHOACANO Stop: 03/28/22 20:59 Last Admin: 02/28/22 11:02 Dose: 40 mg Documented By: Admin: 02/27/22 20:16 Dose: 40 mg Documented By: Admin: 02/27/22 09:55 Dose: 40 mg Documented By: Admin: 02/26/22 23:01 Dose: 40 mg Documented By: HEDY Thiamine HCl 100 mg/ Syringe 10 mls @ 2 mls/min IV QAM MICHOACANO Stop: 03/29/22 08:59 Last Admin: 02/28/22 11:02 Dose: 2 mls/min Documented By: Admin: 02/27/22 09:55 Dose: 2 mls/min Documented By: JAE Discontinued Medications Dexamethasone Sodium Phosphate (DexamethasonePf 10 Mg/Ml Vial) 10 mg IV NOW ONE Stop: 02/26/22 16:51 Last Admin: 02/26/22 17:11 Dose: 10 mg Documented By: LYNDSEY Gadobutrol (Gadobutrol 65ml Vial) 12 ml IV ONCE ONE Stop: 02/26/22 15:01 Last Admin: 02/26/22 14:54 Dose: 12 ml Documented By: ELODIA Vancomycin HCl 2,500 mg/ (Sodium Chloride) 550 mls @ 200 mls/hr IV NOW ONE Stop: 02/26/22 19:34 Last Infusion: 02/26/22 21:47 Dose: 0 mls/hr Documented By: Admin: 02/26/22 18:06 Dose: 200 mls/hr Documented By: LYNDSEY Ceftriaxone Sodium (Rocephin) 2,000 mg in 70 mls @ 140 mls/hr IV NOW STA Stop: 02/26/22 17:19 Last Infusion: 02/26/22 17:45 Dose: 0 mls/hr Documented By: Admin: 02/26/22 17:11 Dose: 140 mls/hr Documented By: LYNDSEY Acyclovir Sodium 1,200 mg/ (Dextrose) 274 mls @ 250 mls/hr IV NOW ONE Stop: 02/26/22 17:55 Last Infusion: 02/26/22 19:03 Dose: 0 mls/hr Documented By: Admin: 02/26/22 17:50 Dose: 250 mls/hr Documented By: LYNDSEY Thiamine HCl 100 mg/ Syringe 10 mls @ 2 mls/min IV NOW STA Stop: 02/26/22 21:03 Last Admin: 02/26/22 23:02 Dose: 2 mls/min Documented By: HEDY Ioversol (Optiray 320 125ml) 120 ml IV ONCE ONE Stop: 02/26/22 11:55 Last Admin: 02/26/22 11:55 Dose: 120 ml Documented By: JACOB Ioversol (Optiray 320 100ml) 95 ml IV ONCE ONE Stop: 02/27/22 12:25 Last Admin: 02/27/22 12:24 Dose: 95 ml Documented By: CRISTY Lidocaine HCl (Lidocaine 2% 2 Ml Vial/Amp(20mg/Ml)) 5 ml INFIL NOW STA Stop: 02/26/22 15:24 Last Admin: 02/26/22 16:03 Dose: Not Given Documented By: LYNDSEY Lidocaine HCl (Lidocaine 2% Local 50 Ml Vial) Confirm Administered Dose 50 ml .ROUTE .STK-MED ONE Stop: 02/26/22 15:28 Last Admin: 02/26/22 16:03 Dose: 50 ml Documented By: ALEXANDRA Description This is a 21 electrode EEG with a single channel dedicated to limited EKG. The electrodes were placed in accordance with the International 10-20 system. This EEG was done is a bedside recording and is of good technical quality with fewer no muscle or movement artifacts. Photic stimulation was performed. Drowsiness light sleep are not seen. Under these conditions there is a normal background rhythm in the alpha range of 10 hertz frequency and of 30 microvolts amplitude which is maximum in posterior head regions bilaterally symmetrical. Polymorphic mid upper frequency modest voltage theta activities seen in a symmetrical fashion over the central regions. Beta activity is seen bifrontally Photic stimulation provokes a modest driving response without a photo myogenic or photo paroxysmal component No potentially epileptiform discharges rather periodic discharges are seen Interpretation This is a normal EEG during wakefulness Clinical Correlation this is a normal EEG during wakefulness revealing no evidence for focal or generalized encephalopathy and no evidence for potentially epileptogenic activity or other periodic discharges Damien Arguello MD
[2022-03-01] MEDS: ENOXAPARIN INJ 40 MG/0.4 ML SYR SQ SCH (07:52)
[2022-03-01] MEDS: THIAMINE HCL 100 MG in SYRINGE 9 ML IV SCH (07:52)
--- NOTE | 2022-03-01 09:47 | Communication Note ---
Date of Service: March 01, 2022 Ramon remains NPO for EUS today in OR for evaluation of pancreatic lesion. Risks/benefits discussed with Ramon and spouse, Deanna, at bedside. All questions answered. Deanna will be available for consent in person or via cell.
[2022-03-01] MEDS ORDERED: DEXAMETHASONE SOD INJ 4 MG/ML VIAL ONE (13:44)
[2022-03-01] MEDS ORDERED: LIDOCAINE 2% MPF LOCAL 5 ML VIAL INFIL ONE (13:44)
[2022-03-01] MEDS ORDERED: SUCCINYLCHOLINE CHLORIDE 20 MG/ML 10 ML VIAL IV ONE (13:44)
[2022-03-01] MEDS ORDERED: PROPOFOL IV EMULSION 10 MG/ML 20 ML VIAL IV ONE (13:44)
[2022-03-01] MEDS ORDERED: MIDAZOLAM HCL 1 MG/ML 2ML VIAL ONE (13:44)
[2022-03-01] MEDS ORDERED: fentaNYL citrate 100 MCG/2 ML VIAL ONE (13:44)
[2022-03-01] MEDS ORDERED: ONDANSETRON INJ 2 MG/ML 2 ML VIAL ONE (13:44)
--- NOTE | 2022-03-01 13:55 | History & Physical Bridge Note ---
Date of Service March 01, 2022 History & Physical Bridge Note I have examined the patient, reviewed the History & Physical and in the interval since the performance of the History & Physical I have noted the following changes of clinical significance: no changes noted The patient presented with history low-antibiotics and CT imaging showing a concerning mass within the pancreas. We are planning to do upper endoscopy with endoscopic sound more diagnosis today. I discussed the risks and benefits with the patient and his to include bleeding, pain, insufficient cellularity, and need for follow-up exam. T DOSE: 1926.81 mGycm FINDINGS: Lung bases: The heart is normal in size and without pericardial effusion. The lung bases are clear. Liver: The contrast-enhanced liver is enlarged, measuring 22 cm in length. The liver demonstrates diffusely diminished attenuation consistent with severe hepatic steatosis. Fatty sparing is seen adjacent to gallbladder fossa. There is no intrahepatic biliary ductal dilatation. No enhancing hepatic mass lesion is seen. Hepatic and portal vasculature: Hepatic arterial anatomy is conventional. The hepatic veins, portal veins, superior mesenteric vein, and the splenic vein are patent. Gallbladder: Hyperdense material within the gallbladder likely represents vicariously excreted contrast. The gallbladder is otherwise normal in appearance. Spleen: The spleen is enlarged measuring 16.7 cm in length. Pancreas: The pancreas is moderately atrophic. There is a 2.8 x 2.5 x 1.9 cm hypervascular mass lesion within or adjacent to the pancreatic head seen on image #162. This lesion shows arterial phase hypervascularity. Additionally, the re are 2 enlarged ancillary hyperemic peripancreatic lymph nodes seen on image #141 measuring 2.1 x 1.8 cm and on image #159 measuring 1.8 x 1.6 cm. The pancreatic duct is normal in caliber. Adrenal glands: Unremarkable. Kidneys: The contrast enhanced kidneys are normal in size and without hydronephrosis. The kidneys enhance symmetrically. Abdominal vasculature: The abdominal aorta is normal in course and caliber. Bowel: Imaged portions of the small bowel and colon show no evidence of obstruction. The appendix is well-visualized and normal. Peritoneum: There is no intraperitoneal free air or abdominal ascites. There is a fat-containing umbilical hernia. Lymphadenopathy: There are peripancreatic lymph nodes as above. No additional pathologically enlarged lymph nodes are seen in the abdomen or pelvis. Skeletal structures: No lytic or blastic lesions are seen. IMPRESSION: 1. Again seen is a 2.8 cm hypervascular mass lesion within or adjacent to the pancreatic head. A primary pancreatic lesion such as a neuroendocrine tumor is favored. Tissue sampling is recommended. 2. There are 2 similar-appearing hypervascular perihepatic lymph nodes indicating jacob involvement. 3. No additional pathologically enlarged lymph nodes are identified in the abdomen or pelvis. 4. Hepatomegaly and hepatic steatosis. 5. Splenomegaly. 6. Additional findings as above.
--- NOTE | 2022-03-01 14:13 | GI REPORT ---
Patient Name: Reggie Curtis Procedure Date: 03/01/2022 2:03 PM Date of : 1975 Admit Type: Inpatient Age: 46 Gender: Male Attending MD: Jacquelin Bowen DO Procedure: Upper GI endoscopy Providers: Jacquelin Bowen DO Referring MD: Nuvia Schwartz Do, Dominic . d.o. Dematteo Indications: Abnormal CT of the GI tract Medicines: General Anesthesia Complications: No immediate complications. Estimated blood loss: Minimal. Estimated Blood Loss: Estimated blood loss: none. Procedure: Pre-Anesthesia Assessment: - Prior to the procedure, a History and Physical was performed, and patient medications, allergies and sensitivities were reviewed. The patient's tolerance of previous anesthesia was reviewed. - The risks and benefits of the procedure and the sedation options and risks were discussed with the patient. All questions were answered and informed consent was obtained. - Patient identification and proposed procedure were verified prior to the procedure by the physician, the nurse and the production weigher. The procedure was verified in the procedure room. - Pre-procedure physical examination revealed no contraindications to sedation. - ASA Grade Assessment: III - A patient with severe systemic disease. - After reviewing the risks and benefits, the patient was deemed in satisfactory condition to undergo the procedure. - The anesthesia plan was to use general anesthesia. - Immediately prior to administration of medications, the patient was re-assessed for adequacy to receive sedatives. - The heart rate, respiratory rate, oxygen saturations, blood pressure, adequacy of pulmonary ventilation, and response to care were monitored throughout the procedure. - The physical status of the patient was re-assessed after the procedure. After obtaining informed consent, the endoscope was passed under direct vision. Throughout the procedure, the patient's blood pressure, pulse, and oxygen saturations were monitored continuously. The Endoscope was introduced through the mouth, and advanced to the third part of duodenum. The upper GI endoscopy was accomplished without difficulty. The patient tolerated the procedure well. Findings: The examined esophagus was normal. The entire examined stomach was normal. The examined duodenum was normal. Impression: - Normal esophagus. - Normal stomach. - Normal examined duodenum. - No specimens collected. Recommendation: - Perform an upper endoscopic ultrasound (UEUS) today. Emy Torres DO 03/01/2022 2:12:46 PM This report has been signed electronically. Note Initiated On: 03/01/2022 2:03 PM Number of Addenda: 0 I attest to the content of the Intraoperative Record and orders documented therein, exceptions below {[id number]}
--- NOTE | 2022-03-01 14:59 | Post Operative Brief Note ---
Immediate Post Op Note v1 Date of Surgery March 01, 2022 Pre & Post Diagnosis Operation Date: 03/01/22 13:50 Pre-Op Diagnosis: AMS Post-Op Diagnosis: Normal egd, 22 mm Pancreatic mass I identified the patient and participated in the time-out.: Yes Procedure Operation Date: 03/01/22 13:50 Actual Procedures p Endoscopic Ultrasonography Upper - Jacquelin Bowen DO Surgeon Jacquelin Bowen DO Side Piece Coverer none Estimated Blood Loss 0 Findings Consistent with Post-Op Diagnosis
--- NOTE | 2022-03-01 15:00 | Communication Note ---
Date of Service: March 01, 2022 Patient underwent upper endoscopy and endoscopic ultrasound this afternoon. We did identify a 22 mm mass in the uncinate process of the pancreas. A fine-n eedle aspiration was performed Recommendations Advance diet as tolerated Await cytology results Consider a surgical oncology referral
--- NOTE | 2022-03-01 15:28 | Anesthesiology Progress Note ---
Date of Service March 01, 2022 Anesthesia Post Procedure Vital Signs Vital Signs: Temp Pulse Pulse Resp BP Pulse Ox O2 Del Method 03/01/22 15:15 36.3 C L 73 15 136/94 94 Room Air 03/01/22 15:05 72 15 145/98 H 96 Room Air 03/01/22 14:55 73 23 142/88 H 97 Oxymask 03/01/22 14:48 36.1 C L 75 10 L 148/96 H 98 Oxymask 03/01/22 13:47 36.7 C 83 18 138/93 97 Room Air 03/01/22 08:14 36.7 C 77 16 123/70 94 02/28/22 22:34 36.4 C L 62 16 131/78 95 Room Air O2 Flow Rate 03/01/22 15:15 03/01/22 15:05 03/01/22 14:55 5 03/01/22 14:48 5 03/01/22 13:47 03/01/22 08:14 02/28/22 22:34 Transfer of Care Handoff Completed per policy Notes Mental Status: alert / awake / arousable Patient Amnestic to Procedure: Yes Nausea / Vomiting: adequately controlled Pain: adequately controlled Airway Patency, RR, SpO2: stable & adequate BP & HR: stable & adequate Hydration State: stable & adequate Anesthetic Complications: no major complications apparent
--- NOTE | 2022-03-01 15:28 | Anesthesiology Consultation ---
Date of Service March 01, 2022 Assessment & Plan Chart Review Chart Review: Acceptable Risk for Surgery and Patient NOT seen in Pre Admission Testing Consults Requested none Proposed Anesthesia Risk / Benefits Reviewed With: PT / POA / Parent / Guardian, Accepts Plan and Informed Consent Obtained History Surgery Operation Date: 03/01/22 13:50 Proposed Procedures p Endoscopic Ultrasonography Teresa Bowen DO Height/Weight Height: 5 ft 10 in Weight: 121.1 kg Allergies Allergy/AdvReac Type Severity Reaction Status Date / Time No Known Allergies Allergy Unverified 02/26/22 13:43 Medications Home Medications Medication Instructions Recorded Confirmed Last Taken No Known Home Medications 02/26/22 02/26/22 Unknown Active Medications Generic Name Dose Route Start Last Admin Trade Name Freq PRN Reason Stop Dose Admin Acetaminophen 650 mg 02/26/22 20:59 03/01/22 07:23 Acetaminophen 325 Mg Tab PO 03/28/22 20:58 650 mg Q4H PRN Administration Moderate Pain Enoxaparin Sodium 40 mg 02/26/22 21:00 03/01/22 07:52 Enoxaparin Inj 40 Mg/0.4 Ml Syr SQ 03/28/22 20:59 40 mg Q12H MICHOACANO Administration Thiamine HCl 100 mg/ Syringe 10 mls @ 2 mls/min 02/27/22 09:00 03/01/22 07:52 IV 03/29/22 08:59 2 mls/min QAM MICHOACANO Administration NPO Date Last Intake of Fluids: 02/28/22 Time Last Intake of Fluids: 21:00 Date Last Intake of Solids: 02/28/22 Time Last Intake of Solids: 21:00 Past Medical History Medical History (Updated 02/27/22 @ 17:38 by Nuvia Schwartz DO) Foot fracture, left Obesity (BMI 30-39.9) Exercise / Class Metabolic Activity II 4-5 Yardwork/Stairs/Walk up hill Past Family History Family History (Updated 02/26/22 @ 18:06 by Iliana Morgan PA-C) Mother Diabetes Heart disease COPD (chronic obstructive pulmonary disease) Past Surgical History Surgical History (Updated 02/26/22 @ 18:02 by Iliana Morgan PA-C) Hx of tonsillectomy Past Anesthesia History No Hx of Anesthesia Complications and No Family Hx of Anesthesia Complications History of PONV No Hx of PONV and No Hx of Motion Sickness Social History Smoking Status: Never smoker Do You Dip or Chew Tobacco: No Hx Alcohol Use: No Alcohol type: beer alcohol intake frequency: holidays/special occasions only Hx Substance Use: No Physical Exam Vital Signs Last Vital Signs Temp 36.3 C L 03/01/22 15:15 Pulse 73 03/01/22 15:15 Resp 15 03/01/22 15:15 BP 136/94 03/01/22 15:15 Pulse Ox 94 03/01/22 15:15 O2 Del Method 03/01/22 15:15 O2 Flow Rate 5 03/01/22 14:55 ENMT Mouth: no dentition abnormality Thyromental Distance: > or= 3.5 Finger Breadths Mallampati Class: II Neck normal visual inspection Respiratory normal respiratory effort Auscultation: lungs clear to auscultation bilaterally Cardiovascular Rate/Rhythm: regular rate and regular rhythm Psychiatric Orientation: alert Testing Laboratory Results 02/28/22 07:19 02/28/22 07:19 Hemoglobin A1c 5.9 % (4.5-5.6) H 02/27/22 07:09 Urine Color Yellow 02/26/22 12:00 Urine Appearance Clear (Clear) 02/26/22 12:00 Urine pH 7.5 (4.5-7.5) 02/26/22 12:00 Ur Specific [place] 1.022 (1.000-1.030) 02/26/22 12:00 Urine Protein Negative (Negative) 02/26/22 12:00 Urine Glucose (UA) Negative (Negative) 02/26/22 12:00 Urine Ketones Negative (Negative) 02/26/22 12:00 Urine Nitrite Negative (Negative) 02/26/22 12:00 Ur Leukocyte Esterase Negative (Negative) 02/26/22 12:00 02/26/22 20:21 Aerobic Blood Culture - Preliminary Blood No growth in Aerobic bottle after 48 hours. Anaerobic Blood Culture - Preliminary No growth in Anaerobic bottle after 48 hours. 02/26/22 20:21 Aerobic Blood Culture - Preliminary Blood No growth in Aerobic bottle after 48 hours. Anaerobic Blood Culture - Preliminary No growth in Anaerobic bottle after 48 hours. 02/26/22 15:45 Gram Stain - Final Cerebral Spinal Fluid CSF Culture - Final No growth
[2022-03-01] MEDS ORDERED: ATROPINE SULFATE 0.1 MG/ML 10ML SYR IV PRN (15:29)
[2022-03-01] MEDS ORDERED: ePHEDrine sulfate 50 MG/ML AMP IV PRN (15:29)
--- NOTE | 2022-03-01 16:16 | Discharge Summary ---
Date of Service March 01, 2022 Admission HPI Per Admitting Provider This is a 46 yo M without past medical history who had acute respiratory infection back in November. He struggles with remembering basic things like peoples names, and was repeating himself. His is concerned that there is a level of confusion present that was not there prior to November. During November their entire family had respiratory illnesses and he was placed on Augmentin for sinusitis and completed the course. He and his family have recently been traveling to areas including [place], [place] for baseball tournaments. Denies any known spider bites, tick bites, etc. notes that his confusion has significantly worsened in the past week whenever he was sleep deprived after taking turns driving home from the beach overnight where he got only 2 hours of sleep. They visited [facility] and during the trip, his family noticed that he was forgetting what they were just recently speaking about. Of note, mentions he was trying to lose weight last September, but since November has consistently had a decreased appetite and has lost quite a bit of weight, maybe over ~20lbs. Denies night sweats or swollen lymph nodes. Their PCP referred them to neurology after a visit in the office yesterday on 02/25/22. Today in the ER the labs are essentially unremarkable. Brain MRI is negative other than showing small retention cyst within the maxillary sinuses, Head and neck CT and CTA are negative. LP was obtained in the ER and cultures are pending, gram stain is negative for organisms, protein is elevated at 45, CRP is elevated at 1.45. Neurology has requested additional studies including EEG. A Lymes, Biofire and other infectious workup is pending. Pt has been started on vanc, zosyn in the ER as well as loaded with acyclovir IV. The patient, his and his sister in law are present. Patient himself has difficulty recalling what has happened, and he asks a similar question several times during my visit today Ex." what is going on, what do you think is the problem?", he does not recall getting imaging, nor having a lumbar puncture today. He thanks me at least 4 times, and is tearful at times. Principal Diagnosis Confusion Pancreatic Mass Weight loss Discharge Exam CONSTITUTIONAL: WNWD, vitals as above, generally well-appearing, NAD EYES: pupils are round and equal bilaterally, normal conjunctivae, no scleral icterus ENT: external ear and nose normal, MMM NECK: trachea midline RESPIRATORY: clear to auscultation bilaterally, no crackles, rales or wheezes, normal respiratory effort CARDIOVASCULAR: regular rate and rhythm, S1 and 2 heard without murmurs, gallops or rubs, no JVD, no peripheral edema CHEST: inspection of chest was normal GASTROINTESTINAL: soft, nontender, no guarding MUSCULOSKELETAL: strength 5/5 throughout, head is normocephalic and atraumatic SKIN: warm and dry NEUROLOGIC: CN 2-12 grossly intact, no sensory deficit, normal cognition, normal speech, no tremor PSYCHIATRIC: alert cooperative and oriented to person, place and time. Having difficulty remembering new information presented, cannot remember details from just 5 minutes prior. Language intact. Discharge Data Allergies Allergy/AdvReac Type Severity Reaction Status Date / Time No Known Allergies Allergy Unverified 02/26/22 13:43 Consultations 02/26/22 17:27 Consult Neurology Routine 02/26/22 17:36 ED Decision to Admit Stat 02/26/22 19:33 Consult Infectious Diseases Routine 02/27/22 09:24 Consult Gastroenterology Routine Procedures Performed Operation Date: 03/01/22 13:50 Actual Procedures p Endoscopic Ultrasonography Teresa - Jacquelin Bowen DO Ordered Studies 02/26/22 11:00 CT angio head w con Stat CT angio neck with con Stat CT head/brain wo con Stat 02/26/22 13:23 MR brain wo/w con Stat 02/26/22 19:40 CT abd pelvis wo con Routine CT chest diagnostic wo con Routine 02/26/22 19:54 US RUQ [US liver] Routine 02/27/22 11:12 CT pancreas 3-phase wo/w con Routine 03/01/22 13:55 US upper EUS PACS images Routine Hospital Course (1) Encephalopathy: (2) Memory loss: -Imaging studies including CT and CTA of the head and neck are negative -MRI of the brain is negative for acute encephalitis, shows small retention cyst in the sinuses, no mass or stroke evidence. -elevated CRP= 1.45, LP with CSF of 6, Protein 45.5, negative for all viruses on biofire including HSV, enterovirus, CMV, VZV. [place] is pending. Gram stain is negative for organisms. CSF culture pending-patient afebrile and no leukocytosis. -awaiting peripheral smear -Neurology consulted-EEG per neurology request - this was normal B12 slightly low. MMA pending. Replacing thiamine empirically. -concern for paraneoplastic syndrome as a cause (3) Pancreatic mass: CT of the chest abdomen pelvis without oral or IV contrast was performed given the significant weight loss. 2.9 cm soft tissue lesion in or adjacent to the pancreatic head may present an enlarged lymph node versus a primary pancreatic mass lesion. There are enlarged peripancreatic lymph nodes hepatomegaly with steatosis, splenomegaly and colonic diverticulosis. -DDX includes but not limited to lymphoma, islet cell tumor (neuroendocrine tumor), adenocarcinoma. - ? consider paraneoplastic syndrome to explain current symptoms -discussed case wtih GI transportation planner who performed an EUS with biopsy Monday. -pathology was pending at time of discharge. -path ultimately returned with evidence of this being a neuroendocrine tumor. (4) Obesity (BMI 30-39.9): - notes that the patient has been losing weight since September, purposely, within the past 2 months appetite seems to have decreased and patient continues to lose weight -BMI of 38.3 Plan He was hemodynamically stable and afebrile and tolerating PO prior to discharge into 's care. She was advised that he shouldn't be left alone given ongoing confusion and verbalized understanding with intent to comply. Unfortunately, infectious disease consultation was unable to be performed, however, there was low likelihood of this being from an infection at this point and initial infectious workup was essentially negative on admisison. Close primary care follow-up recommended. Total Time Total Time Spent Total Time Spent (In Minutes): 60 Discharge Plan Discharge Items Patient Disposition: Home - Self-Care Reason For Visit: AMS Discharge Diagnosis: Confusion Pancreatic Mass Weight loss Condition on Discharge: Good Activity: Resume your previous activity Non-emergency contact: Primary Care Provider Call non-emergency contact if: you have any medication questions, your symptoms worsen, your pain is not controlled, your pain is worsening, your pain is unusual for you, your pain is concerning for you and you have a fever Follow-up/Referrals: Maciel Martínez DO [Primary Care Provider] - (Date & Time 03/07/2022 11:20 AM Provider Maciel Martínez DO [facility] ) Diet: Regular Addtl Attending Provider Instructions: Please take all medications as instructed on discharge list below. It is recommended that you follow-up with your primary care provider at the date and time above. This will be to update him on the imaging findings and ensure things are going well since returning home. Also, pathology results will be available within the week. He may need to move forward with additional referrals at that time based on the findings. It was a pleasure taking care of you! Please call if you have any questions or problems. You can reach a [facility] hospitalist on duty at [facility] 24 hours a day by calling [phone]. Take care of yourself. Nuvia Schwartz, DO [facility]ist Pending Studies at Discharge: Yes Studies:: biopsy pathology results Stand-Alone Forms: My [facility] Medications and DC Order Prescriptions: Continued No Known Home Medications Discharge Orders: Discharge Order (Routine); Ordered 03/01/22 Ordered By: Nuvia Schwartz Admission Data Admit Date/Time: 02/26/22 17:27 Attending Provider: Nuvia Schwartz Admit Provider: Nuvia Schwartz Primary Care Provider: Maciel Martínez Other Providers: Sindy De La Rosa ; Jocelyne Hood ; Siobhan Albarran ; Moises Harrison ; Eleni Wheeler ; Mehul Gabriel I. ; Jeffery Fox II ; Barbie Blas ; Charly Bejarano ; Branden Lyman ; Jacquelin Bowen Other Interventions: Discharge Summary Assessment (RN) Last Done: 03/01/22 17:05
--- NOTE | 2022-03-01 16:28 | GI REPORT ---
Patient Name: Reggie Curtis Procedure Date: 03/01/2022 2:12 PM Date of : 1975 Admit Type: Inpatient Age: 46 Gender: Male Attending MD: Jacquelin Bowen DO Procedure: Upper EUS Providers: Jacquelin Bowen DO Referring MD: Nuvia Schwartz Do, Dominic . d.o. Dematteo Indications: Suspected mass in pancreas on CT scan Medicines: General Anesthesia Complications: No immediate complications. Estimated blood loss: Minimal. Estimated Blood Loss: Estimated blood loss was minimal. Procedure: Pre-Anesthesia Assessment: - Prior to the procedure, a History and Physical was performed, and patient medications, allergies and sensitivities were reviewed. The patient's tolerance of previous anesthesia was reviewed. - The risks and benefits of the procedure and the sedation options and risks were discussed with the patient. All questions were answered and informed consent was obtained. - Patient identification and proposed procedure were verified prior to the procedure by the physician, the nurse and the substation superintendent. The procedure was verified in the procedure room. - Pre-procedure physical examination revealed no contraindications to sedation. - ASA Grade Assessment: III - A patient with severe systemic disease. - After reviewing the risks and benefits, the patient was deemed in satisfactory condition to undergo the procedure. - The anesthesia plan was to use general anesthesia. - Immediately prior to administration of medications, the patient was re-assessed for adequacy to receive sedatives. - The heart rate, respiratory rate, oxygen saturations, blood pressure, adequacy of pulmonary ventilation, and response to care were monitored throughout the procedure. - The physical status of the patient was re-assessed after the procedure. After obtaining informed consent, the endoscope was passed under direct vision. Throughout the procedure, the patient's blood pressure, pulse, and oxygen saturations were monitored continuously. The Endosonoscope was introduced through the mouth, and advanced to the third part of duodenum. The upper EUS was accomplished without difficulty. The patient tolerated the procedure well. Findings: ENDOSONOGRAPHIC FINDING: : There was no sign of significant endosonographic abnormality in the ampulla. No masses were identified. There was no sign of significant endosonographic abnormality in the gallbladder. An unremarkable gallbladder was identified. There was no sign of significant endosonographic abnormality in the visualized portion of the liver. Homogeneous parenchyma and no focal pathology were identified. No lymphadenopathy seen. There was no sign of significant endosonographic abnormality in the left adrenal gland. No adrenal gland enlargement was identified. An oval mass was identified in the uncinate process of the pancreas. The mass was hypoechoic. The mass measured 22 mm by 20 mm in maximal cross-sectional diameter. The outer margins were smooth. An intact interface was seen between the mass and the superior mesenteric artery, celiac trunk, hepatic artery, gastroduodenal artery and portal vein suggesting a lack of invasion. The remainder of the pancreas was examined. The endosonographic appearance of parenchyma and the upstream pancreatic duct indicated that the remainder of the pancreas was unremarkable. Fine needle aspiration for cytology was performed. Color Doppler imaging was utilized prior to needle puncture to confirm a lack of significant vascular structures within the needle path. Five passes were made with the 22 gauge needle ( 2 passes with a eziCONEX Pro-core) and 3 passes with the 25 gauge needle using a transduodenal approach. A stylet was used. A honey producer was present to evaluate the adequacy of the specimen. Final cytology results are pending. Estimated blood loss was minimal. Impression: - There was no sign of significant pathology in the ampulla. - There was no sign of significant pathology in the gallbladder. - There was no evidence of significant pathology in the visualized portion of the liver. - Endosonographic images of the left adrenal gland were unremarkable. - A 22 x 20 mm mass was identified in the uncinate process of the pancreas. This was staged T2 N0 M0 by endosonographic criteria. The staging applies if malignancy is confirmed. Fine needle aspiration performed. Recommendation: - Await cytology results. - Advance diet as tolerated today. - Refer to a surgeon at appointment to be scheduled. aJcquelin Bowen D.O. Jacquelin Bowen, 03/01/2022 4:28:15 PM This report has been signed electronically. Note Initiated On: 03/01/2022 2:12 PM Number of Addenda: 0 I attest to the content of the Intraoperative Record and orders documented therein, exceptions below {[id number]}
[2022-03-07 14:27] LABS: % Cryocrit DNR; Cryoglobulin, QL Negative (Negative)
--- NOTE | 2022-03-08 05:01 | Coding Query ---
PATHOLOGY To promote full compliance with coding requirements relating to patient care, physician participation is requested in all cases of masticator uncertainty. Please assist us with the question(s) below: Pt admitted with memory loss; EUS /pancreas with biopsy done. Path now available with addendum from outside Lab. 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 Thank you IFEANYI Fonseca [facility]
[2022-03-09 01:44] LABS: ANCA Screen Negative (Negative); Anti Nuclear Antibody Screen NEGATIVE (NEGATIVE); Ceruloplasmin 18 mg/dL (18-36); Complement C3 155 mg/dL (82-185); Complement Total(CH50) >60 U/mL (31-60); HBSAG NON-REACTIVE (NON-REACTIVE); Hepatitis A Antibody IgM NON-REACTIVE (NON-REACTIVE); Hepatitis B Core Antibody IgM NON-REACTIVE (NON-REACTIVE); Methylmalonic Acid 162 nmol/L (87-318); Myeloperoxidase Ab <1.0 AI (<1.0); Proteinase-3 AB <1.0 AI (<1.0)
== END 2022-03-01 18:03 | disposition home or self-care (01) | DRG 844 ==
LOC: ED 10:13 → 3N 17:27